=== PATIENT | female | born 1935 | race Caucasian/White ===

== ENCOUNTER → 2016-08-17 | Outpatient (CLI) | payer MEDICARE, MEDICAID ==
[~2016-08-17] MED LIST: /AUGM25TA PO; /PANT40TA PO; /RISE30TA OR; /RISE35TA OR; AMLO5TAB PO; ASPI81TA83 OR; BABY81CH OR; BACTROBAN TOP; CALC12502 PO; CALC600T10 OR; CALCCHW12 OR; CELE20TA OR; COLA100C2 PO; DIOV320T OR; DIOV320T PO; DIOV80TA OR; FERR325T PO; ILOTYCIN TOP; LEVA500T OR; LIDO5DIS TD; METF500T4 OR; METO25TA2 OR; MILKSUS OR; MILKSUS PO; NITR0.4S SL; NORV5TAB OR; OXYC10TA12 OR; PAIN325T PO; POTA20TA2 PO; SIMV20TA2 OR; TOPR25TA OR; TRAM50TA2 PO; ZOCOR PO; lumigan OP; mylanta PO
--- NOTE | 2016-08-17 09:35 | REP ---
Chest x-ray: Two views. History: History of kidney cancer. Comparison chest x-ray June 12, 2015. Findings: The lungs are slightly hyperinflated. There are linear fibrotic changes in the right middle lobe and left lower lobe unchanged. No new infiltrate is seen. Pleural angles are sharp. Cardiomediastinal silhouette is unremarkable and unchanged. There are mild degenerative changes in the thoracic spine. There are clips in the right upper abdomen. Impression: Bibasilar fibrosis. Otherwise no acute disease. Signed by Keny Parrish MD 08/17/2016 01:35 P
--- NOTE | 2016-08-17 11:42 | REP ---
CT ABDOMEN AND PELVIS IV OR ORAL CONTRAST: 08/17/2016 INDICATION: History of kidney cancer COMPARISON: CT of the abdomen and pelvis 04/03/2014 performed without contrast, following IV contrast in the nephrogram phase with 1 -minute delayed imaging. FINDINGS: Small amount of fibroatelectatic changes are seen in lung bases bilaterally and also in the lingula and right middle lobe. 3 mm calcified granuloma present within the left lower lobe. There are a few stable hepatic cysts. Spleen, pancreas gallbladder, adrenal glands are normal. There has been previous right nephrectomy. There is a small left extrarenal pelvis. There is no left hydronephrosis or obstructing ureteral calculi. There is a 3 cm hiatal hernia. The stomach and small bowel are without obstruction. Moderate atherosclerotic changes are noted in the abdominal aorta, without aneurysm. There are no pathologically enlarged retroperitoneal lymph nodes. Bladder is unremarkable. Uterus within normal limits. There are a few small left ovarian follicles. There is some nonspecific calcifications within the right lower quadrant. There moderate sigmoid diverticulosis. The appendix is not specifically seen yet there are no inflammatory changes in the right lower quadrant. There is no free air or ascites. A stable density lesion in the right side of T 11 is most compatible with benign hemangioma of bone. IMPRESSION: Prior right nephrectomy for history of kidney cancer. There are no pathologically enlarged retroperitoneal nodes or interval change. Few stable hepatic cysts with moderate sigmoid diverticulosis. Rare calcifications in the right lower pelvis which may be dystrophic or possibly vascular in etiology. Signed by Monserrat Tinoco MD 08/17/2016 08:59 P
== END | disposition home or self-care (01) ==
LOC: M RAD 08:20
PROVIDERS: ATTEND Urology
DX: Z85.528 Personal history of other malignant neoplasm of kidney (principal); Z90.5 Acquired absence of kidney; K76.89 Other specified diseases of liver; K57.30 Diverticulosis of large intestine without perforation or abscess without bleeding; J84.10 Pulmonary fibrosis, unspecified

== ENCOUNTER → 2016-12-18 | Outpatient (CLI) | payer MEDICAID, MEDICARE ==
[2016-12-18 10:21] LABS: ALBUMIN 3.7 GM/DL (3.2-5.2); ALBUMIN/GLOBULIN RATIO 1.12 (1.00-1.93); BILIRUBIN,TOTAL 0.3 MG/DL (0.2-1.0); CALCIUM LEVEL 8.9 MG/DL (8.8-10.2); CREATININE FOR GFR 1.7 MG/DL (0.55-1.02); GLOMERULAR FILTRATION RATE 30.8 (>32); POTASSIUM SERUM 4.7 MEQ/L (3.5-5.1)
== END ==
LOC: M LAB 09:16
PROVIDERS: ATTEND Nurse Practitioner Family
DX: I10 Essential (primary) hypertension (principal); E11.9 Type 2 diabetes mellitus without complications

== ENCOUNTER → 2017-04-16 | Outpatient (REF) | payer MEDICARE, MEDICAID ==
[2017-04-16 12:26] LABS: ALBUMIN 3.9 GM/DL (3.2-5.2); ALBUMIN/GLOBULIN RATIO 1.22 (1.00-1.93); BILIRUBIN,TOTAL 0.4 MG/DL (0.2-1.0); CREATININE FOR GFR 1.49 MG/DL (0.55-1.02); GLOMERULAR FILTRATION RATE 35.8 (>32); POTASSIUM SERUM 4.6 MEQ/L (3.5-5.1); TOTAL PROTEIN 7.1 GM/DL (6.4-8.2)
== END ==
LOC: M SFHCPLAZ 09:54
PROVIDERS: ATTEND Nurse Practitioner Family
DX: I12.9 Hypertensive chronic kidney disease with stage 1 through stage 4 chronic kidney disease, or unspecified chronic kidney disease (principal); N18.3 Chronic kidney disease, stage 3 (moderate); E11.9 Type 2 diabetes mellitus without complications; Z23 Encounter for immunization
CPT/HCPCS: 36415; 80053; 83036; 90662; G0008; G0463

== ENCOUNTER → 2017-07-30 | Outpatient (REF) | payer MEDICARE, MEDICAID ==
[2017-07-30 13:24] LABS: ESTIMATED AVERAGE GLUCOSE 160 MG/DL (60-110)
[2017-07-30 13:25] LABS: ALBUMIN 3.9 GM/DL (3.2-5.2); ALBUMIN/GLOBULIN RATIO 1.22 (1.00-1.93); ALKALINE PHOSPHATASE 45 U/L (45-117); ALT/SGPT 29 U/L (12-78); ANION GAP 8 MEQ/L (8-16); AST/SGOT 26 U/L (7-37); BILIRUBIN,TOTAL 0.4 MG/DL (0.2-1.0); BLOOD UREA NITROGEN 27 MG/DL (7-18); CALCIUM LEVEL 9.2 MG/DL (8.8-10.2); CARBON DIOXIDE LEVEL 28 MEQ/L (21-32); CHLORIDE LEVEL 103 MEQ/L (98-107); CREATININE FOR GFR 1.44 MG/DL (0.55-1.02); GLOMERULAR FILTRATION RATE 37.2 (>32); GLUCOSE, FASTING 108 MG/DL (83-110); POTASSIUM SERUM 4.6 MEQ/L (3.5-5.1); SODIUM LEVEL 139 MEQ/L (136-145); TOTAL PROTEIN 7.1 GM/DL (6.4-8.2)
== END ==
LOC: M SFHCPLAZ 11:00
DX: E11.9 Type 2 diabetes mellitus without complications (principal); E78.5 Hyperlipidemia, unspecified
CPT/HCPCS: 80053

== ENCOUNTER → 2017-10-15 | Outpatient (REF) | payer MEDICARE, MEDICAID ==
[2017-10-15 11:02] LABS: ALBUMIN/GLOBULIN RATIO 1.29 (1.00-1.93); ALKALINE PHOSPHATASE 55 U/L (45-117); ALT/SGPT 32 U/L (12-78); ANION GAP 8 MEQ/L (8-16); AST/SGOT 21 U/L (7-37); BILIRUBIN,TOTAL 0.4 MG/DL (0.2-1.0); BLOOD UREA NITROGEN 26 MG/DL (7-18); CALCIUM LEVEL 9.6 MG/DL (8.8-10.2); CARBON DIOXIDE LEVEL 28 MEQ/L (21-32); CHLORIDE LEVEL 104 MEQ/L (98-107); CHOLESTEROL LEVEL 160 MG/DL (<200); CHOLESTEROL RISK RATIO 2.666 (<5); CREATININE FOR GFR 1.58 MG/DL (0.55-1.30); ESTIMATED AVERAGE GLUCOSE 166 MG/DL (60-110); GLOMERULAR FILTRATION RATE 33.4 (>32); GLUCOSE, FASTING 160 MG/DL (70-100); HDL CHOLESTEROL 60 MG/DL (>40); HEMOGLOBIN A1c 7.4 %; LDL CHOLESTEROL 73.4 MG/DL (<100); NON-HDL-C 100 MG/DL; POTASSIUM SERUM 4.9 MEQ/L (3.5-5.1); SODIUM LEVEL 140 MEQ/L (136-145); TOTAL PROTEIN 7.1 GM/DL (6.4-8.2); TRIGLYCERIDES LEVEL 133 MG/DL (<150)
== END ==
LOC: M SFHCPLAZ 08:15
DX: E78.5 Hyperlipidemia, unspecified (principal); E11.9 Type 2 diabetes mellitus without complications
CPT/HCPCS: 80053

== ENCOUNTER → 2017-12-17 | Outpatient (CLI) | payer MEDICARE, MEDICAID | LOC: M WHC 10:08 | DX: Z12.31 Encounter for screening mammogram for malignant neoplasm of breast (principal) | CPT/HCPCS: 77067 ==

== ENCOUNTER → 2018-01-21 | Outpatient (REF) | payer MEDICARE, MEDICAID ==
[2018-01-21 12:56] LABS: CHOLESTEROL LEVEL 157 MG/DL (<200); CHOLESTEROL RISK RATIO 2.573 (<5); HDL CHOLESTEROL 61 MG/DL (>40); LDL CHOLESTEROL 71.8 MG/DL (<100); NON-HDL-C 96 MG/DL; TRIGLYCERIDES LEVEL 121 MG/DL (<150)
[2018-01-21 13:07] LABS: TOTAL 25(OH) VITAMIN D 52.3 NG/ML (30.0-100.0)
[2018-01-21 13:28] LABS: ESTIMATED AVERAGE GLUCOSE 160 MG/DL (60-110); HEMOGLOBIN A1c 7.2 %
== END ==
LOC: M SFHCPLAZ 09:17
DX: E11.9 Type 2 diabetes mellitus without complications (principal); E78.5 Hyperlipidemia, unspecified; E55.9 Vitamin D deficiency, unspecified; Z79.899 Other long term (current) drug therapy
CPT/HCPCS: 83036

== ENCOUNTER → 2018-06-10 | Outpatient (REF) | payer MEDICARE, MEDICAID ==
[2018-06-10 13:03] LABS: ALBUMIN 4.3 GM/DL (3.2-5.2); ALBUMIN/GLOBULIN RATIO 1.26 (1.00-1.93); ALKALINE PHOSPHATASE 59 U/L (45-117); ALT/SGPT 27 U/L (12-78); ANION GAP 6 MEQ/L (8-16); AST/SGOT 23 U/L (7-37); BILIRUBIN,TOTAL 0.4 MG/DL (0.2-1.0); BLOOD UREA NITROGEN 31 MG/DL (7-18); CARBON DIOXIDE LEVEL 31 MEQ/L (21-32); CHLORIDE LEVEL 99 MEQ/L (98-107); CREATININE FOR GFR 1.55 MG/DL (0.55-1.30); GLOMERULAR FILTRATION RATE 34.1 (>32); GLUCOSE, FASTING 150 MG/DL (70-100); POTASSIUM SERUM 4.7 MEQ/L (3.5-5.1); SODIUM LEVEL 136 MEQ/L (136-145); TOTAL PROTEIN 7.7 GM/DL (6.4-8.2)
[2018-06-10 14:16] LABS: TOTAL 25(OH) VITAMIN D 52.4 NG/ML (30.0-100.0)
[2018-06-10 14:26] LABS: ESTIMATED AVERAGE GLUCOSE 157 MG/DL (60-110); HEMOGLOBIN A1c 7.1 %
== END ==
LOC: M SFHCPLAZ 09:23
DX: E78.5 Hyperlipidemia, unspecified (principal); E11.9 Type 2 diabetes mellitus without complications; E55.9 Vitamin D deficiency, unspecified; Z79.899 Other long term (current) drug therapy
CPT/HCPCS: 80053

== ENCOUNTER → 2018-10-14 | Outpatient (REF) | payer MEDICARE, MEDICAID ==
[~2018-10-14] MED LIST changes: -/PANT40TA PO; +METO-1 OR; +PROT1TAB2 PO; -TOPR25TA OR
[2018-10-14 13:25] LABS: HEMOGLOBIN A1c 7.3 %
== END ==
LOC: M SFHCPLAZ 10:56
PROVIDERS: ATTEND Nurse Practitioner Family
DX: E11.9 Type 2 diabetes mellitus without complications (principal); E55.9 Vitamin D deficiency, unspecified
CPT/HCPCS: 36415; 82306; 83036; G0463

== ENCOUNTER 2018-12-14 21:16 | Emergency (ER) | payer MEDICARE, MEDICAID ==
[~2018-12-14] VITALS: Ht 154.9 cm; Wt 72.7 kg
[2018-12-14] MEDS ORDERED: NORV5TAB PO (21:38)
[2018-12-14] MEDS ORDERED: SIMB1SUS OP (21:38)
[2018-12-14] MEDS ORDERED: XALA0.007 OU (21:38)
[2018-12-14] MEDS ORDERED: FURO20TA2 PO (21:38)
[2018-12-14] MEDS ORDERED: SYST1SOL4 OU (21:38)
[2018-12-14] MEDS ORDERED: GLUC5TAB3 PO (21:38)
[2018-12-14] MEDS ORDERED: LOSA100T50 PO (21:38)
[2018-12-14] MEDS ORDERED: FAMO20TA PO (21:38)
[2018-12-14] MEDS ORDERED: CITA20TA6 PO (21:38)
[2018-12-14] MEDS ORDERED: D3 H10002 PO (21:38)
[2018-12-14] MEDS ORDERED: SIMV20TA2 PO (21:38)
[2018-12-14 22:03] LABS: BASO # 0.1 10^3/uL (0.0-0.2); BASO % 0.8 % (0.0-1.0); EOS # 0.1 10^3/uL (0.0-0.50); EOS % 1.7 % (0.0-3.0); HEMATOCRIT 38.2 % (36.0-47.0); HEMOGLOBIN 12.7 g/dl (12.0-15.5); LYMPH # 1.6 10^3/uL (1.5-4.5); MEAN CORPUSCULAR HGB CONC 33.2 g/dl (32.0-36.5); MEAN CORPUSCULAR VOLUME 90.1 fl (80.0-96.0); MONO # 0.9 10^3/uL (0.0-0.8); MONO % 11.5 % (0.0-5.0); NEUTROPHILS % 64.7 % (36.0-66.0); PLATELET COUNT, AUTOMATED 267 10^3/uL (150-450); RED BLOOD COUNT 4.24 10^6/uL (4.00-5.40); WHITE BLOOD COUNT 7.7 10^3/uL (4.0-10.0)
[2018-12-14 22:35] LABS: ALBUMIN 3.7 GM/DL (3.2-5.2); BILIRUBIN,DIRECT 0.1 MG/DL (0.0-0.2); BILIRUBIN,TOTAL 0.3 MG/DL (0.2-1.0); CALCIUM LEVEL 9.2 MG/DL (8.8-10.2); CREATININE FOR GFR 1.54 MG/DL (0.55-1.30); GLOMERULAR FILTRATION RATE 34.3 (>32); MB/CK RELATIVE INDEX 1.44 (< OR =4); POTASSIUM SERUM 3.9 MEQ/L (3.5-5.1); THYROID STIMULATING HORMONE 3.87 uIU/ML (0.358-3.740); TOTAL PROTEIN 6.7 GM/DL (6.4-8.2); TROPONIN I 0.02 NG/ML (< 0.10)
--- NOTE | 2018-12-14 22:37 | REPVR ---
EXAM: CT Head Without Contrast EXAM DATE/TIME: 12/14/2018 10:17 PM CLINICAL HISTORY: 83 years old, female; Signs and symptoms; Altered mental status/memory loss TECHNIQUE: Imaging protocol: Axial computed tomography images of the head without contrast. Radiation optimization: All CT scans at this facility use at least one of these dose optimization techniques: automated exposure control; mA and/or kV adjustment per patient size (includes targeted exams where dose is matched to clinical indication); or iterative reconstruction. COMPARISON: Thyroid, ST head+neck US 04/03/2014 10:36 AM FINDINGS: Brain: There is mild age-related parenchymal volume loss. White matter changes are demonstrated in the subcortical, centrum semiovale and periventricular white matter consistent with small vessel white matter angiopathic gliosis. Ventricles: The degree of ventricular dilatation is normal for age. No pathologic enlargement demonstrated. 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 Bones/joints: Unremarkable. No acute fracture. Sinuses: Visualized sinuses are unremarkable. No fluid levels. Mastoid air cells: Visualized mastoid air cells are well aerated. No mastoid effusion. Soft tissues: Unremarkable. IMPRESSION: There is mild age-related parenchymal volume loss. White matter changes are demonstrated in the subcortical, centrum semiovale and periventricular white matter consistent with small vessel white matter angiopathic gliosis. Electronically signed by: Rajiv Bradley On 12/14/2018 22:37:06 PM
[2018-12-14] MEDS ORDERED: NS 500 ML IV ONE (23:45)
[2018-12-15 00:30] VITALS: BP 134/60
--- NOTE | 2018-12-15 07:59 | REP ---
Chest x-ray: Two views. History: Altered mental status. Comparison chest x-ray: August 17, 2016. Findings: EKG monitoring electrodes overlie the chest. There is bibasilar plate-like atelectasis as a new finding. Today's view is exposed at a lesser level of inspiration. Heart is not felt to be enlarged. The aorta somewhat tortuous. Pulmonary vasculature is not increased. Pleural angles are sharp. No significant bony abnormality is seen. Impression: Lesser level of inspiration today. Moderate bibasilar plate-like atelectasis. Electronically Signed by Keny Parrish MD 12/15/2018 07:51 A
--- NOTE | 2018-12-15 08:09 | ECGEPIP ---
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
== END 2018-12-15 00:42 | disposition home or self-care (01) ==
LOC: M ED 21:16
DX: R41.0 Disorientation, unspecified (principal); T88.7XXA Unspecified adverse effect of drug or medicament, initial encounter; Y92.9 Unspecified place or not applicable; Y93.9 Activity, unspecified; G93.41 Metabolic encephalopathy; I45.10 Unspecified right bundle-branch block; I44.4 Left anterior fascicular block; I50.9 Heart failure, unspecified; E11.9 Type 2 diabetes mellitus without complications; I10 Essential (primary) hypertension; E78.5 Hyperlipidemia, unspecified; K21.9 Gastro-esophageal reflux disease without esophagitis; N18.3 Chronic kidney disease, stage 3 (moderate); Z85.528 Personal history of other malignant neoplasm of kidney; Z90.5 Acquired absence of kidney; Z79.82 Long term (current) use of aspirin; Z79.84 Long term (current) use of oral hypoglycemic drugs; Z79.899 Other long term (current) drug therapy; Z88.8 Allergy status to other drugs, medicaments and biological substances; Z88.2 Allergy status to sulfonamides; Z88.5 Allergy status to narcotic agent

== ENCOUNTER → 2018-12-29 | Outpatient (REF) | payer MEDICARE, MEDICAID ==
[~2018-12-29] MED LIST changes: +CITA20TA6 PO; +D3 H10002 PO; +FAMO20TA PO; +FURO20TA2 PO; +GLUC5TAB3 PO; +LOSA100T50 PO; +NORV5TAB PO; +SIMB1SUS OP; +SIMV20TA2 PO; +SYST1SOL4 OU; +XALA0.007 OU
[2018-12-29 16:14] LABS: FREE T4 1.13 NG/DL (0.76-1.46); THYROID STIMULATING HORMONE 1.54 uIU/ML (0.358-3.740)
== END ==
LOC: M SFHCPLAZ 12:28
PROVIDERS: ATTEND Nurse Practitioner Family
DX: R41.3 Other amnesia (principal)
CPT/HCPCS: 36415; 82306; 82607; 84439; 84443; G0463

== ENCOUNTER → 2019-01-19 | Outpatient (REF) | payer MEDICARE, MEDICAID | LOC: M SFHCPLAZ 07:31 | PROVIDERS: ATTEND Nurse Practitioner Family | DX: E11.9 Type 2 diabetes mellitus without complications (principal); N18.3 Chronic kidney disease, stage 3 (moderate); E78.5 Hyperlipidemia, unspecified; Z53.8 Procedure and treatment not carried out for other reasons ==

== ENCOUNTER → 2019-06-23 | Outpatient (REF) | payer MEDICARE, MEDICAID ==
[~2019-06-23] MED LIST changes: -SIMV20TA2 PO; +SIMV20TA22 PO
[2019-06-23 15:46] LABS: HEMOGLOBIN A1c 7.3 %
[2019-06-23 15:50] LABS: ALBUMIN 4.1 GM/DL (3.2-5.2); BILIRUBIN,TOTAL 0.4 MG/DL (0.2-1.0); CALCIUM LEVEL 9.3 MG/DL (8.8-10.2); CREATININE FOR GFR 1.41 MG/DL (0.55-1.30); GLOMERULAR FILTRATION RATE 37.9 (>32); POTASSIUM SERUM 4.5 MEQ/L (3.5-5.1); TOTAL PROTEIN 7.4 GM/DL (6.4-8.2)
== END ==
LOC: M SFHCPLAZ 14:21
PROVIDERS: ATTEND Nurse Practitioner Family
DX: I12.9 Hypertensive chronic kidney disease with stage 1 through stage 4 chronic kidney disease, or unspecified chronic kidney disease (principal); N18.3 Chronic kidney disease, stage 3 (moderate); E78.5 Hyperlipidemia, unspecified; E11.9 Type 2 diabetes mellitus without complications; Z23 Encounter for immunization
CPT/HCPCS: 36415; 80053; 83036; 90682; G0008; G0463

== ENCOUNTER → 2019-07-11 | Outpatient (CLI) | payer MEDICARE, MEDICAID ==
[2019-07-11 13:46] LABS: ALBUMIN 4.1 GM/DL (3.2-5.2); BILIRUBIN,TOTAL 0.5 MG/DL (0.2-1.0); CALCIUM LEVEL 9.4 MG/DL (8.8-10.2); CREATININE FOR GFR 1.42 MG/DL (0.55-1.30); GLOMERULAR FILTRATION RATE 37.6 (>32); POTASSIUM SERUM 4.4 MEQ/L (3.5-5.1); TOTAL PROTEIN 7.5 GM/DL (6.4-8.2)
[2019-07-11 14:00] LABS: HEMOGLOBIN A1c 7.2 %
== END ==
LOC: M PLALAB 11:30
PROVIDERS: ATTEND Nurse Practitioner Family
DX: E11.9 Type 2 diabetes mellitus without complications (principal); I12.9 Hypertensive chronic kidney disease with stage 1 through stage 4 chronic kidney disease, or unspecified chronic kidney disease; N18.3 Chronic kidney disease, stage 3 (moderate); E78.5 Hyperlipidemia, unspecified

== ENCOUNTER → 2019-08-09 | Outpatient (REF) | payer MEDICARE, MEDICAID ==
[2019-08-09 13:52] LABS: ALBUMIN 4.1 GM/DL (3.2-5.2); CALCIUM LEVEL 9.4 MG/DL (8.8-10.2); CREATININE FOR GFR 1.42 MG/DL (0.55-1.30); GLOMERULAR FILTRATION RATE 37.6 (>32); MAGNESIUM LEVEL 2.1 MG/DL (1.8-2.4); POTASSIUM SERUM 4.2 MEQ/L (3.5-5.1)
== END ==
LOC: M LAB REF 13:09
PROVIDERS: ATTEND Nurse Practitioner Family
DX: N18.3 Chronic kidney disease, stage 3 (moderate) (principal); E83.42 Hypomagnesemia

== ENCOUNTER → 2019-12-12 | Outpatient (CLI) | payer MEDICARE, MEDICAID ==
[2019-12-12 09:56] LABS: HEMOGLOBIN A1c 7.4 %
== END ==
LOC: M LAB 08:34
PROVIDERS: ATTEND Family Medicine
DX: E11.9 Type 2 diabetes mellitus without complications (principal)

== ENCOUNTER 2020-06-04 10:58 | Inpatient (IN) | payer MEDICARE, MEDICAID ==
[~2020-06-04] VITALS: Ht 157.5 cm; Wt 64.7 kg
[~2020-06-04 10:58] MED LIST changes: -SIMB1SUS OP; +SIMB1SUS OU
[2020-06-04] MEDS ORDERED: LIDOCAINE 2% 5ML JELLY UROJET TOP ONE ×3 (11:30→12:30)
[2020-06-04 11:37] LABS: BASO % 0.4 % (0.0-1.0); HEMATOCRIT 41.9 % (36.0-47.0); HEMOGLOBIN 13.7 g/dl (12.0-15.5); LYMPH # 0.7 10^3/uL (1.5-5.0); LYMPH % 9.7 % (24.0-44.0); MEAN CORPUSCULAR HEMOGLOBIN 29.9 pg (27.0-33.0); MEAN CORPUSCULAR HGB CONC 32.7 g/dl (32.0-36.5); MEAN CORPUSCULAR VOLUME 91.5 fl (80.0-96.0); MONO # 0.4 10^3/uL (0.0-0.8); NEUTROPHILS # 6.5 10^3/uL (1.5-8.5); NEUTROPHILS % 84.6 % (36.0-66.0); PLATELET COUNT, AUTOMATED 304 10^3/uL (150-450); RED BLOOD COUNT 4.58 10^6/uL (4.00-5.40); WHITE BLOOD COUNT 7.6 10^3/uL (4.0-10.0)
--- NOTE | 2020-06-04 11:47 | REP ---
INDICATION: Altered Mental Status. COMPARISON: Comparison head CT study December 14, 2018.. TECHNIQUE: Helical scanning is acquired. 5 mm axial images were reformatted. Coronal MPR images were generated. FINDINGS: Bone window settings demonstrate an intact bony calvarium. There is no evidence of skull fracture or incidental bony calvarial lesion. The visualized paranasal sinuses appear clear. No intraorbital abnormality is seen. On soft tissue window setting images; the lateral, third, and fourth ventricles are normal in size and position. Justice-white differentiation pattern is normal above and below the tentorium. There are is no evidence of intracranial hemorrhage. No mass, edema, infarction, or midline shift is seen. No extra-axial fluid collection is appreciated. There is generalized volume loss. This is unchanged. Minimal vascular calcification is seen. IMPRESSION: Generalized volume loss as previously noted. Otherwise negative CT study of the brain. No acute intracranial abnormality.. <Electronically signed by Dwayne Parrish > 06/04/20 [id number]
--- NOTE | 2020-06-04 11:57 | REP ---
INDICATION: Altered Mental Status. COMPARISON: 12/14/2018, 08/17/2016 TECHNIQUE: AP seated chest FINDINGS: The lungs are well inflated. There is linear fibrotic change peripherally in the right mid lower lung zone and some posterior basilar fibrotic changes on the left. There is also linear the scarring in the right medial base. There is no dense consolidation or gross effusion visible. Heart is not enlarged. The aorta is calcified and tortuous but unchanged. Airway intact. Degenerative changes throughout the thoracic spine and both shoulders. No free air under the diaphragm. IMPRESSION: 1. Some basilar fibrosis bilaterally without definite superimposed infiltrate, effusion, cardiomegaly or edema 2. Tortuous ectatic calcified aorta, stable. 3. Degenerative changes in the spine and shoulders. Bones demineralized. No acute bony findings. <Electronically signed by Jose Ryder > 06/04/20 [id number]
[2020-06-04] MEDS ORDERED: NS 1,000 ML IV ONE (12:00)
[2020-06-04 12:14] LABS: ACETAMINOPHEN LEVEL < 2.0 UG/ML (10.0-30.0); ALBUMIN 4.3 GM/DL (3.2-5.2); ALT/SGPT 27 U/L (12-78); BEDSIDE GLUCOSE CONFIRMATION 731 MG/DL (LESS THAN 200); BILIRUBIN,DIRECT 0.3 MG/DL (0.0-0.2); BILIRUBIN,TOTAL 0.6 MG/DL (0.2-1.0); BLOOD UREA NITROGEN 28 MG/DL (7-18); CALCIUM LEVEL 10.2 MG/DL (8.8-10.2); CARBON DIOXIDE LEVEL 23 MEQ/L (21-32); CHLORIDE LEVEL 98 MEQ/L (98-107); CK-MB VALUE MASS 4.8 NG/ML (<3.6); CPK CREATINE PHOSPHOKINASE 447 U/L (26-192); CREATININE FOR GFR 1.61 MG/DL (0.55-1.30); ETHYL ALCOHOL (ETHANOL) < 0.003 % (0.000-0.010); GLOMERULAR FILTRATION RATE 32.5 (>32); GLUCOSE, FASTING 731 MG/DL (70-100); MB/CK RELATIVE INDEX 1.07 (< OR =4); POTASSIUM SERUM 4.6 MEQ/L (3.5-5.1); SALICYLATE LEVEL < 1.7 MG/DL (5.0-30.0); SODIUM LEVEL 132 MEQ/L (136-145); TOTAL PROTEIN 7.7 GM/DL (6.4-8.2); TROPONIN I 0.04 NG/ML (< 0.10)
[2020-06-04] MEDS ORDERED: HumuLIN R (REGULAR) INSULIN (NovoLIN R) **100U/ML** PER UNIT IV ONE (12:30)
[2020-06-04] MEDS ORDERED: ASPI81TA26 PO (12:44)
[2020-06-04] MEDS ORDERED: D31000TA2 PO (12:44)
[2020-06-04] MEDS ORDERED: MELA3TAB30 PO (12:45)
[2020-06-04 12:53] LABS: AMPHETAMINES LEVEL URINE NEGATIVE (NEGATIVE); BARBITURATES URINE NEGATIVE (NEGATIVE); BENZODIAZEPINES URINE NEGATIVE (NEGATIVE); CANNABINOIDS URINE NEGATIVE (NEGATIVE); COCAINE METABOLITE URINE NEGATIVE (NEGATIVE); METHADONE URINE NEGATIVE (NEGATIVE); OPIATES URINE NEGATIVE (NEGATIVE); PHENCYCLIDINE URINE NEGATIVE (NEGATIVE)
[2020-06-04] MEDS ORDERED: INSULIN REGULAR IN 0.9 % NACL 100 UNIT in IV 1 EA IV SCH ×2 (13:00)
[2020-06-04] MEDS ORDERED: ACETAMINOPHEN TAB 650MG DOSE (2X325MG) PO PRN (13:00)
[2020-06-04] MEDS ORDERED: INSULIN IV RATE CHANGE DOCUMENTATION ML/HR XX SCH (13:00)
--- NOTE | 2020-06-04 13:14 | HPEPDOC ---
General Date of Admission 06/04/20 Date of Service: Jun 04, 2020 Chief Complaint The patient is a 85-year-old female admitted with a reason for visit of Alt. Mental Status. Source: Family, Caregiver Exam Limitations: Dementia Timing/Duration: 24 hours, Day(s) Severity: Moderate History of Present Illness Patient is 85 years old female with past medical history of right nephrectomy due to cancer, dementia, type 2 diabetes presented to the hospital with altered mental status. According to her daughter in low for past 1-2 days patient has been having increased confusion, was disoriented in time and place. Patient did not have any fever or chills, diarrhea. In ER patient was found to have glucose level of 731, anion gap with in normal limit, creatinine 1.6. High blood pressure of 170/84. Home Medications Scheduled Amlodipine Besylate (Norvasc) 5 Mg Tablet, 5 MG PO DAILY, (Reported) Aspirin (Aspirin EC) 81 Mg Tablet.dr, 81 MG PO QHS, (Reported) Brinzolamide/Brimonidine Tart (Simbrinza 1%-0.2% Eye Drops) 8 Ml Drops.susp, 1 DROP OU QHS, (Reported) Cholecalciferol (Vitamin D3) (Vitamin D3) 1,000 Unit Tablet, 1,000 UNITS PO DAILY, (Reported) Citalopram Hydrobromide (Citalopram HBr) 20 Mg Tablet, 30 MG PO DAILY, (Repor my) Famotidine (Famotidine) 20 Mg Tablet, 20 MG PO DAILY, (Reported) Furosemide (Furosemide) 20 Mg Tablet, 20 MG PO DAILY, (Reported) Glipizide (Glucotrol) 5 Mg Tablet, 2.5 MG PO DAILY, (Reported) Latanoprost (Xalatan) 0.005% 2.5ML Drops, 1 DROP OU QHS, (Reported) Losartan Potassium (Losartan Potassium) 100 Mg Tablet, 100 MG PO QHS, (Reported) Simvastatin (Simvastatin) 20 Mg Tablet, 20 MG PO QHS, (Reported) Scheduled PRN Melatonin (Melatonin) 3 Mg Tablet, 3 MG PO QHS PRN for SLEEP, (Reported) Propylene Glycol/Peg 400/Pf (Systane 0.3-0.4% Eye Drop) 1 Each Droperette, 1 DROP OU QID PRN for DRY EYES, (Reported) Allergies Coded Allergies: Sulfa (Sulfonamide Antibiotics) (Verified Allergy, Intermediate, hives, 12/14/18) Quinolones (Verified Adverse Reaction, Intermediate, psychosis, 12/14/18) hydromorphone (Verified Adverse Reaction, Intermediate, psychosis, 12/14/18) Past Medical History Medical History Hyperlipidemia, hypertension, right kidney cancer, type 2 diabetes, dementia Surgical History Tubal ligation, right nephrectomy due to kidney cancer Family History I personally reviewed family history and found not pertinent Social History * Smoker: Denies Alcohol: Denies Drugs: denies A-FIB/CHADSVASC A-FIB History Current/History of A-Fib/PAF?: No Current PO Anticoag Therapy: No Review of Systems Constitutional: Denies: Chills, Fever Eyes: Denies: Pain ENT: Denies: Head Aches Skin: Denies: Rash, Lesions Pulmonary: Denies: Dyspnea Cardiovascular: Denies: Chest Pain Gastrointestinal: Denies: Nausea, Vomiting Genitourinary: Reports: Dysuria Hematologic: Denies: Bruising Endocrine: Reports: Polydipsia Musculoskeletal: Denies: Neck Pain, Back Pain Neurological: Denies: Weakness Psych: Reports: Mood Normal Physical Examination General Exam: Positive: Alert, Cooperative Eye Exam: Positive: PERRLA ENT Exam: Positive: Atraumatic Neck Exam: Positive: Supple; Negative: JVD Chest Exam: Positive: Clear to auscultation Heart Exam: Positive: Rate Normal Telemetry: Positive: No significant arrhythmia Abdomen Exam: Positive: Normal bowel sounds Extremity Exam: Negative: Clubbing Skin Exam: Negative: Lesion Neuro Exam: Positive: Cranial Nerves 3-12 NL, Reflexes 2+ Psych Exam: Positive: Other (patient demented not oriented in place and time) Vital Signs Vital Signs Date Time Temp Pulse Resp B/P (MAP) Pulse Ox O2 Delivery O2 Flow Rate FiO2 06/04/20 11:24 96.7 06/04/20 11:00 97 16 170/84 (112) 94 Room Air Laboratory Data Labs 24H Laboratory Tests 2 06/04/20 11:17: Urine Opiates Screen NEGATIVE, Urine Methadone Screen NEGATIVE, Urine Barbit urates Screen NEGATIVE, Urine Phencyclidine Screen NEGATIVE, Urine Amphetamines Screen NEGATIVE, Urine Benzodiazepines Screen NEGATIVE, Urine Cocaine Metabolite Screen NEGATIVE, Urine Cannabinoids Screen NEGATIVE 06/04/20 11:24: Immature Granulocyte % (Auto) 0.3, Neutrophils (%) (Auto) 84.6H, Lymphocytes (%) (Auto) 9.7L, Monocytes (%) (Auto) 5.0, Eosinophils (%) (Auto) 0.0, Basophils (%) (Auto) 0.4, Neutrophils # (Auto) 6.5, Lymphocytes # (Auto) 0.7L, Monocytes # (Auto) 0.4, Eosinophils # (Auto) 0.0, Basophils # (Auto) 0.0, Nucleated Red Blood Cells % (auto) 0.0, POC Glucose (Misc Panel) > 700*H, Bedside Glucose Confirm (Misc) 731*H, POC Sodium (Misc Panel) 133L, POC Potassium (Misc Panel) 4.6, POC Chloride (Misc Panel) 100, POC Total CO2 (Misc Panel) 24.0, POC Blood U selina Nitrogen (Misc Panel 27H, POC Ionized Calcium (Misc Panel) 5.0, POC Creatinine (Misc Panel) 1.2, POC Hematocrit (Misc Panel) 44.0, Anion Gap 11, Glomerular Filtration Rate 32.5, Estimated Mean Plasma Glucose 240H, Hemoglobin A1c 10.0, Lactic Acid Level 3.3*H, Calcium Level 10.2, Total Bilirubin 0.6, Direct Bilirubin 0.3H, Aspartate Amino Transf (AST/SGOT) 22, Alanine Aminotransferase (ALT/SGPT) 27, Alkaline Phosphatase 88, Ammonia 13, Total Creatine Kinase 447H, Creatine Kinase MB 4.8H, Creatine Kinase MB Relative Index 1.07, Troponin I 0.04, Total Protein 7.7, Albumin 4.3, Albumin/Globulin Ratio 1.3, Thyroid Stimulating Hormone (TSH) 1.100, Salicylates Level < 1.7L, Acetaminophen Level < 2.0L, Ethyl Alcohol Level < 0.003 06/04/20 12:22: Urine Color YELLOW, Urine Appearance HAZY, Urine pH 6.0, Urine Specific [place] 1.026, Urine Protein NEGATIVE, Urine Glucose (UA) 3+H, Urine Ketones TRACEH, Urine Blood 1+H, Urine Nitrite NEGATIVE, Urine Bilirubin NEGATIVE, Urine Urobilinogen 0.2, Urine Leukocyte Esterase NEGATIVE, Urine WBC (Auto) 2, Urine RBC (Auto) 3, Urine Hyaline Casts (Auto) 0, Urine Bacteria (Auto) 2+H, Urine Squamous Epithelial Cells 0, Urine Mucus (Auto) SMALL, Urine Sperm (Auto) CBC/BMP Laboratory Tests 06/04/20 11:24 Microbiology Microbiology 06/04/20 Blood Culture, Received Pending Assessment/Plan Patient is 85 years old female with past medical history of right nephrectomy due to cancer, dementia, type 2 diabetes presented to the hospital with altered mental status. According to her daughter in low for past 1-2 days patient has been having increased confusion, was disoriented in time and place. Patient did not have any fever or chills, diarrhea. In ER patient was found to have glucose level of 731, anion gap with in normal limit, creatinine 1.6. High blood pressure of 170/84. Problems (1) Hyperglycemic hyperosmolar nonketotic coma Status: Acute Problem Text: Patient has type 2 diabetes, she takes glipizide Insulin drip IV fluid BMP every 4 hours Glucose level every 1 hour We'll check HbA1c (2) Confusion Status: Acute Problem Text: Secondary to HHC superimposed with dementia (3) Hypertension Status: Chronic Problem Text: Continue home meds (4) CKD (chronic kidney disease) Status: Acute Problem Text: Acute on chronic Due to dehydration secondary to HHC IV fluid, continue to monitor (5) Dementia Status: Chronic Problem Text: Continue home meds Plan / VTE VTE Prophylaxis Ordered?: Yes KELVIN LAGOS DO Jun 04, 2020 13:14
[2020-06-04 13:35] LABS: ABG BASE EXCESS -2.5 (-2.0-2.0); ABG HCO3 21.9 MEQ/L (22.0-26.0); ABG O2 SATURATION 95.2 % (95.0-99.0); ABG PARTIAL PRESSURE CO2 36.7 mmHg (35.0-45.0); ABG PARTIAL PRESSURE O2 75.8 mmHg (75.0-100.0); ABG STANDARD HCO3 22.4 MEQ/L (22.0-26.0); ABG pH (ARTERIAL) 7.394 UNITS (7.350-7.450)
[2020-06-04] MEDS: KCL 20MEQ in NS 1000ML 1,000 ML IV SCH ×2 (14:02→21:04)
[2020-06-04 14:07] LABS: HEMOGLOBIN A1c 10.3 %
[2020-06-04] MEDS ORDERED: DEXTROSE 50% 50 ML SYRINGE IV PRN (14:45)
[2020-06-04] MEDS ORDERED: GLUCOSE 4GM CHEW TABLET PO PRN (14:45)
[2020-06-04] MEDS ORDERED: GLUCAGON INJ 1MG VIAL SC PRN (14:45)
[2020-06-04] MEDS: LEVEMIR (INSULIN DETEMIR) 1 UNITS/0.01ML SC SCH (15:46)
[2020-06-04 16:00] VITALS: BP 144/67
[2020-06-04] MEDS: HumaLOG INSULIN (NovoLOG) PER UNIT SC SCH (17:56)
[2020-06-04] MEDS: LOSARTAN 50MG TABLET PO SCH (17:57)
[2020-06-04 20:00] VITALS: BP 137/60
[2020-06-04] MEDS ORDERED: SIMVASTATIN 20 MG TAB PO SCH (21:00)
[2020-06-04] MEDS ORDERED: ASPIRIN 81 MG ENTERIC TAB PO SCH (21:00)
[2020-06-04] MEDS ORDERED: LOSARTAN 50MG TABLET PO SCH (21:00)
[2020-06-04] MEDS ORDERED: LATANOPROST 0.005% OPHTH SOLN 2.5 ML OU SCH (21:00)
[2020-06-04] MEDS ORDERED: HumaLOG INSULIN (NovoLOG) PER UNIT SC SCH (21:00)
[2020-06-04 21:38] LABS: CREATININE FOR GFR 1.27 MG/DL (0.55-1.30); GLOMERULAR FILTRATION RATE 42.7 (>32); POTASSIUM SERUM 3.9 MEQ/L (3.5-5.1)
[2020-06-05] VITALS: BP 138/76
[2020-06-05 01:25] LABS: CALCIUM LEVEL 9.1 MG/DL (8.8-10.2); CREATININE FOR GFR 1.16 MG/DL (0.55-1.30); GLOMERULAR FILTRATION RATE 47.4 (>32); POTASSIUM SERUM 3.3 MEQ/L (3.5-5.1)
[2020-06-05] MEDS: POTASSIUM CHLORIDE 10 MEQ SR TABLET PO SCH ×2 (03:20→05:24)
[2020-06-05] MEDS: KCL 20MEQ in NS 1000ML 1,000 ML IV SCH (03:20)
[2020-06-05 04:00] VITALS: BP 149/70
[2020-06-05 05:58] LABS: BILIRUBIN,TOTAL 0.5 MG/DL (0.2-1.0); CALCIUM LEVEL 8.6 MG/DL (8.8-10.2); CREATININE FOR GFR 1.13 MG/DL (0.55-1.30); GLOMERULAR FILTRATION RATE 48.8 (>32); PHOSPHORUS LEVEL 3.3 MG/DL (2.5-4.9); POTASSIUM SERUM 4.4 MEQ/L (3.5-5.1); TOTAL PROTEIN 5.9 GM/DL (6.4-8.2)
[2020-06-05 08:00] VITALS: BP 181/81
[2020-06-05] MEDS: HumaLOG INSULIN (NovoLOG) PER UNIT SC SCH ×2 (08:37→12:00)
[2020-06-05] MEDS: LEVEMIR (INSULIN DETEMIR) 1 UNITS/0.01ML SC SCH (08:38)
[2020-06-05] MEDS: LOSARTAN 50MG TABLET PO SCH (08:38)
[2020-06-05 08:39] VITALS: BP 181/81
[2020-06-05] MEDS ORDERED: CitaloPRAM (CeleXA) 20 MG TAB PO SCH (09:00)
[2020-06-05] MEDS ORDERED: ENOXAPARIN 30MG/0.3ML SYRINGE (J1650 PER 10MG) SC SCH (09:00)
[2020-06-05] MEDS ORDERED: FAMOTIDINE 20 MG TAB PO SCH (09:00)
[2020-06-05] MEDS ORDERED: VITAMIN D 1,000 INTERNATIONAL UNITS TABLET PO SCH (09:00)
[2020-06-05] MEDS ORDERED: amLODIPine 5 MG TAB PO SCH (09:00)
[2020-06-05] MEDS ORDERED: BLOOKIT21 XX (10:34)
[2020-06-05] MEDS ORDERED: LANC30MI XX (10:34)
[2020-06-05] MEDS ORDERED: GLUC1TES2 XX (10:34)
[2020-06-05] MEDS ORDERED: ALCOPAD25 TOP (10:34)
[2020-06-05] MEDS ORDERED: LANTINJ4 SC (10:34)
[2020-06-05] MEDS ORDERED: METF-839 PO (10:34)
[2020-06-05] MEDS ORDERED: PEN1MIS22 SC (10:34)
--- NOTE | 2020-06-05 11:34 | ECGEPIP ---
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
--- NOTE | 2020-06-05 12:33 | DS.PDOC ---
Discharge Summary General Date of Admission Jun 04, 2020 at 12:52 Date of Discharge 06/05/20 Discharge Summary PROCEDURES PERFORMED DURING STAY: [None]. ADMITTING DIAGNOSES: Hyperglycemic hyperosmolar nonketotic coma Confusion Hypertension CKD (chronic kidney disease) Dementia DISCHARGE DIAGNOSES: Hyperglycemic hyperosmolar nonketotic coma Confusion Hypertension CKD (chronic kidney disease) Dementia COMPLICATIONS/CHIEF COMPLAINT: Confusion. HISTORY OF PRESENT ILLNESS:Patient is 85 years old female with past medical history of right nephrectomy due to cancer, dementia, type 2 diabetes presented to the hospital with altered mental status. According to her daughter in low for past 1-2 days patient has been having increased confusion, was disoriented in time and place. Patient did not have any fever or chills, diarrhea. In ER patient was found to have glucose level of 731, anion gap with in normal limit, creatinine 1.6. High blood pressure of 170/84. HOSPITAL COURSE: During hospital stay following issue addressed (1) Hyperglycemic hyperosmolar nonketotic coma Patient received treatment with Insulin drip Glucose level was stabilized Patient has poorly controlled diabetes with around HbA1c 10 (2) Confusion Secondary to HHC superimposed with dementia (3) Hypertension Continue home meds (4) CKD (chronic kidney disease) Acute on chronic Due to dehydration secondary to HHC IV fluid, continue to monitor (5) Dementia Continue home meds DISCHARGE MEDICATIONS: Please see below. ALLERGIES: Please see below. PHYSICAL EXAMINATION ON DISCHARGE: VITAL SIGNS: Please see below. Physical Examination General Exam: Positive: Alert, Cooperative Eye Exam: Positive: PERRLA ENT Exam: Positive: Atraumatic Neck Exam: Positive: Supple; Negative: JVD Chest Exam: Positive: Clear to auscultation Heart Exam: Positive: Rate Normal Telemetry: Positive: No significant arrhythmia Abdomen Exam: Positive: Normal bowel sounds Extremity Exam: Negative: Clubbing Skin Exam: Negative: Lesion Neuro Exam: Positive: Cranial Nerves 3-12 NL, Reflexes 2+ Psych Exam: Positive: Other (patient demented not oriented in place and time) LABORATORY DATA: Please see below. PROGNOSIS: Fair ACTIVITY: [As tolerated]. DIET: Diabetes DISPOSITION: Home DISCHARGE INSTRUCTIONS: Check glucose level before each meal ITEMS TO FOLLOWUP ON ON OUTPATIENT: Follow-up with PCP in 2-3 days DISCHARGE CONDITION: [Stable]. TIME SPENT ON DISCHARGE: Greater than 20 minutes. Vital Signs/I&Os Vital Signs Date Time Temp Pulse Resp B/P (MAP) Pulse Ox O2 Delivery O2 Flow Rate FiO2 06/05/20 08:39 75 181/81 06/05/20 08:00 97.3 20 98 Room Air I&O- Last 24 Hours up to 6 AM 06/05/20 06:00 Intake Total 1309 ml Output Total 1150 ml Balance 159 ml Laboratory Data Labs 24H Laboratory Tests 2 06/04/20 13:24: Blood Gas Bicarbonate Standard 22.4, Arterial Blood pH 7.394, Arterial Blood Partial Pressure CO2 36.7, Arterial Blood Partial Pressure O2 75.8, Arterial Blood Total CO2 23.0, Arterial Blood HCO3 21.9L, Arterial Blood Base Excess - 2.5L, Arterial Blood Oxygen Saturation 95.2 06/04/20 13:32: Estimated Mean Plasma Glucose 249H, Hemoglobin A1c 10.3 06/04/20 13:47: Bedside Glucose (Misc Panel) 362H 06/04/20 15:11: Bedside Glucose (Misc Panel) 188H 06/04/20 15:38: Lactic Acid Followup at 4 Hours 2.9*H 06/04/20 17:19: Bedside Glucose (Misc Panel) 121H 06/04/20 20:59: Anion Gap 5L, Glomerular Filtration Rate 42.7, Calcium Level 9.0 06/04/20 21:06: Bedside Glucose (Misc Panel) 140H 06/05/20 00:46: Anion Gap 6L, Glomerular Filtration Rate 47.4, Calcium Level 9.1 06/05/20 02:28: Bedside Glucose (Misc Panel) 67L 06/05/20 03:12: Bedside Glucose (Misc Panel) 154H 06/05/20 04:12: Bedside Glucose (Misc Panel) 217H 06/05/20 05:04: Anion Gap 1L, Glomerular Filtration Rate 48.8, Calcium Level 8.6L, Phosphorus Level 3.3, Magnesium Level 2.0, Total Bilirubin 0.5, Aspartate Amino Transf (AST/SGOT) 26, Alanine Aminotransferase (ALT/SGPT) 25, Alkaline Phosphatase 60, Total Protein 5.9#L, Albumin 3.0#L, Albumin/Globulin Ratio 1.0L CBC/BMP Laboratory Tests 06/04/20 20:59 06/05/20 00:46 06/05/20 05:04 FSBS Laboratory Tests Test 06/04/20 13:47 06/04/20 15:11 06/04/20 17:19 06/04/20 21:06 Range/Units Bedside Glucose (Misc Panel) 362 188 121 140 83-110 MG/DL Test 06/05/20 02:28 06/05/20 03:12 06/05/20 04:12 Range/Units Bedside Glucose (Misc Panel) 67 154 217 83-110 MG/DL Microbiology Microbiology 06/04/20 Blood Culture, Received Pending 06/04/20 Blood Culture - Preliminary, Resulted No growth after 24 hours . All specim... Discharge Medications Scheduled Amlodipine Besylate (Norvasc) 5 Mg Tablet, 5 MG PO DAILY, (Reported) Aspirin (Aspirin EC) 81 Mg Tablet.dr, 81 MG PO QHS, (Reported) Blood Sugar Diagnostic (Advanced Glucose Test Strips) 1 Each Strip, 1 STRIP XX ACHS Brinzolamide/Brimonidine Tart (Simbrinza 1%-0.2% Eye Drops) 8 Ml Drops.susp, 1 DROP OU QHS, (Reported) Cholecalciferol (Vitamin D3) (Vitamin D3) 1,000 Unit Tablet, 1,000 UNITS PO DAILY, (Reported) Citalopram Hydrobromide (Citalopram HBr) 20 Mg Tablet, 30 MG PO DAILY, (Reported) Famotidine (Famotidine) 20 Mg Tablet, 20 MG PO DAILY, (Reported) Furosemide (Furosemide) 20 Mg Tablet, 20 MG PO DAILY, (Reported) Insulin Glargine,Hum.rec.anlog (Lantus Solostar) 100 Unit/1 Ml Insuln.pen, 15 UNIT SC QPM Latanoprost (Xalatan) 0.005% 2.5ML Drops, 1 DROP OU QHS, (Reported) Losartan Potassium (Losartan Potassium) 100 Mg Tablet, 100 MG PO QHS, (Reported) Metformin HCl (Metformin HCl) 500 Mg Tablet, 500 MG PO BID Simvastatin (Simvastatin) 20 Mg Tablet, 20 MG PO QHS, (Reported) Scheduled PRN Melatonin (Melatonin) 3 Mg Tablet, 3 MG PO QHS PRN for SLEEP, (Reported) Propylene Glycol/Peg 400/Pf (Systane 0.3-0.4% Eye Drop) 1 Each Droperette, 1 DROP OU QID PRN for DRY EYES, (Reported) Allergies Coded Allergies: Sulfa (Sulfonamide Antibiotics) (Verified Allergy, Intermediate, hives, 12/14/18) Quinolones (Verified Adverse Reaction, Intermediate, psychosis, 12/14/18) hydromorphone (Verified Adverse Reaction, Intermediate, psychosis, 12/14/18) KELVIN LAGOS DO Jun 05, 2020 12:33
== END 2020-06-05 14:58 | disposition home health service (06) | DRG 639 ==
LOC: M ED 10:58 → M ED INP 12:52 → ENRESERV 13:44 → M PCU 16:25
PROVIDERS: ADMIT Internal Medicine; ATTEND Internal Medicine
DX: E11.01 Type 2 diabetes mellitus with hyperosmolarity with coma (principal); R41.82 Altered mental status, unspecified; F03.90 Unspecified dementia, unspecified severity, without behavioral disturbance, psychotic disturbance, mood disturbance, and anxiety; I10 Essential (primary) hypertension; E11.65 Type 2 diabetes mellitus with hyperglycemia; E86.0 Dehydration; E11.22 Type 2 diabetes mellitus with diabetic chronic kidney disease; E78.5 Hyperlipidemia, unspecified; N18.9 Chronic kidney disease, unspecified; Z85.528 Personal history of other malignant neoplasm of kidney; Z90.5 Acquired absence of kidney; Z79.82 Long term (current) use of aspirin; Z79.84 Long term (current) use of oral hypoglycemic drugs; Z79.899 Other long term (current) drug therapy; Z88.2 Allergy status to sulfonamides; Z88.1 Allergy status to other antibiotic agents; Z88.5 Allergy status to narcotic agent

== ENCOUNTER → 2020-07-09 | Outpatient (REF) | payer SELFPAY ==
[~2020-07-09] MED LIST changes: +ALCOPAD25 TOP; +ASPI81TA26 PO; +BLOOKIT21 XX; +D31000TA2 PO; +GLUC1TES2 XX; +LANC30MI XX; +LANTINJ4 SC; +MELA3TAB30 PO; +METF-839 PO; +PEN1MIS22 SC
== END ==
LOC: M LABCAHC 09:17
PROVIDERS: ATTEND Pediatrics
DX: Z20.828 Contact with and (suspected) exposure to other viral communicable diseases (principal)

== ENCOUNTER → 2020-07-16 | Outpatient (REF) | payer MEDICARE, MEDICAID | LOC: M LAB REF 16:44 | PROVIDERS: ATTEND Nurse Practitioner Family | DX: N39.0 Urinary tract infection, site not specified (principal) ==

== ENCOUNTER → 2020-10-31 | Outpatient (REF) | payer MEDICARE, MEDICAID ==
[2020-10-31 14:28] LABS: ALBUMIN 3.9 GM/DL (3.2-5.2); BILIRUBIN,TOTAL 0.3 MG/DL (0.2-1.0); CALCIUM LEVEL 9.6 MG/DL (8.8-10.2); CREATININE FOR GFR 1.28 MG/DL (0.55-1.30); GLOMERULAR FILTRATION RATE 42.3 (>32); POTASSIUM SERUM 4.5 MEQ/L (3.5-5.1); TOTAL PROTEIN 7.2 GM/DL (6.4-8.2)
[2020-10-31 14:36] LABS: TOTAL 25(OH) VITAMIN D 24.7 NG/ML (30.0-100.0)
[2020-10-31 15:11] LABS: HEMOGLOBIN A1c 6.8 %
== END ==
LOC: M SFHCPLAZ 09:08
PROVIDERS: ATTEND Family Medicine
DX: N18.30 Chronic kidney disease, stage 3 unspecified (principal); E11.9 Type 2 diabetes mellitus without complications; E55.9 Vitamin D deficiency, unspecified
CPT/HCPCS: 36415; 80053; 82306; 83036; G0463

== ENCOUNTER 2020-12-02 17:47 | Inpatient (IN) | payer MEDICARE, MEDICAID ==
[~2020-12-02] VITALS: Ht 154.9 cm; Wt 70.0 kg
[2020-12-02] MEDS: HumaLOG INSULIN (NovoLOG) PER UNIT SC SCH (00:30)
[2020-12-02] MEDS: LEVEMIR (INSULIN DETEMIR) 1 UNITS/0.01ML SC SCH (00:37)
[~2020-12-02 17:47] MED LIST changes: -BASA100I SC
[2020-12-02] MEDS ORDERED: cefTRIAXone SOD 1 GM in D5W MINI-BAG PLUS 50 ML IV ONE (20:00)
[2020-12-02] MEDS ORDERED: NS 500 ML IV ONE ×2 (20:00→22:35)
[2020-12-02 21:15] LABS: HEMATOCRIT 39.1 % (36.0-47.0); HEMOGLOBIN 12.8 g/dl (12.0-15.5); MEAN CORPUSCULAR HEMOGLOBIN 30.1 pg (27.0-33.0); MEAN CORPUSCULAR HGB CONC 32.7 g/dl (32.0-36.5); PLATELET COUNT, AUTOMATED 270 10^3/uL (150-450); RED BLOOD COUNT 4.25 10^6/uL (4.00-5.40); WHITE BLOOD COUNT 7.9 10^3/uL (4.0-10.0)
--- NOTE | 2020-12-02 21:23 | REPVR ---
PROCEDURE INFORMATION: Exam: XR Chest Exam date and time: 12/02/2020 8:21 PM Age: 85 years old Clinical indication: Other: Sepsis TECHNIQUE: Imaging protocol: XR of the chest. Views: 1 view. COMPARISON: [facility] PORTABLE CHEST X-RAY 06/04/2020 11:36 AM FINDINGS: Lungs: There is a streaky area of increased density at the left lung base which may be atelectasis or infiltrate. The patient should have a PA and lateral view of the chest for further evaluation of this and to exclude any possibility of underlying nodule. Pleural spaces: There is no evidence of pneumothorax or pleural effusion. Small amount of fluid within the minor fissure on the right. Heart/Mediastinum: There is prominence left side of the heart. Bones/joints: Unremarkable. IMPRESSION: Streaky increased density at the left lung base may be atelectasis and infiltrate. I would recommend a PA and lateral view of the chest with a better depth of inspiration to exclude any possibility of nodular pathology at the left lung base. Electronically signed by: Aris Narvaez On 12/02/2020 21:23:02 PM
[2020-12-02 21:36] LABS: ALBUMIN 3.6 GM/DL (3.2-5.2); ALT/SGPT 23 U/L (12-78); BILIRUBIN,TOTAL 0.3 MG/DL (0.2-1.0); BLOOD UREA NITROGEN 50 MG/DL (7-18); CALCIUM LEVEL 9.2 MG/DL (8.8-10.2); CARBON DIOXIDE LEVEL 25 MEQ/L (21-32); CHLORIDE LEVEL 102 MEQ/L (98-107); CPK CREATINE PHOSPHOKINASE 132 U/L (26-192); CREATININE FOR GFR 1.25 MG/DL (0.55-1.30); GLOMERULAR FILTRATION RATE 43.5 (>32); GLUCOSE, FASTING 142 MG/DL (70-100); MB/CK RELATIVE INDEX 1.52 (< OR =4); POTASSIUM SERUM 4.1 MEQ/L (3.5-5.1); SODIUM LEVEL 138 MEQ/L (136-145); TOTAL PROTEIN 6.6 GM/DL (6.4-8.2); TROPONIN I < 0.02 NG/ML (< 0.10)
[2020-12-02] MEDS ORDERED: METF-839 PO (22:55)
[2020-12-02] MEDS ORDERED: BASA100I SC ×2 (22:55)
[2020-12-02] MEDS: ASPIRIN 81MG ENTERIC TABLET PO SCH (23:00)
[2020-12-02] MEDS: LATANOPROST 0.005% OPHTH SOLN 2.5 ML OU SCH (23:00)
[2020-12-02] MEDS ORDERED: GLUCOSE 4GM CHEW TABLET PO PRN (23:25)
[2020-12-02] MEDS ORDERED: GLUCAGON INJ 1MG VIAL SC PRN (23:25)
[2020-12-02] MEDS ORDERED: DEXTROSE 50% 50 ML SYRINGE IV PRN (23:25)
[2020-12-02 23:39] LABS: RSV AMPLIFICATION NEGATIVE (NEGATIVE)
--- NOTE | 2020-12-03 00:15 | HPEPDOC ---
[facility] Medical History & Physical Date of Admission December 02, 2020 Date of Service: December 02, 2020 Primary Care Physician: Brian Wilkins MD Attending Physician: DEXTER RAMSEY MD History and Physical CHIEF COMPLAINT: confusion HISTORY OF PRESENT ILLNESS: Norma is an 85 year old female who presented to the ED today with 1 day history of confusion. Her daughter in law is present and provides most of the history as the patient has some baseline dementia. Patient was feeling well yesterday, but had an appointment scheduled with PCP office today due to poorly regulated blood glucose levels at home. According to daughter in law, the patient was not her usual self since she work up this morning. The patient has reported some intermittent dizziness. The patient was also noted to have an incontinent BM without notifying her family members. Daughter in law states that she typically has incontinence of bladder and bowel, but is good about letting someone know. They are not sure how long she was sitting in the BM before her family became aware and changed her Depends. The patient now reports a rash and some irritation on her buttocks. In the PCP office, she was diagnosed with a UTI and instructed to report to the ED if she developed any further symptoms. The patient continued to have dizziness in the car ride home and the daughter in law decided to bring her in for further evaluation. PAST MEDICAL HISTORY: Dementia Diabetes mellitus CKD stage 3 HTN Aortic stenosis HLD Osteoporosis Depression GERD Renal cell carcinoma s/p resection Glaucoma PAST SURGICAL HISTORY: 2 C-sections Tubal ligation Lipoma removal x2 (right shoulder, neck) Thyroid biopsy, benign nodule Right partial nephrectomy for RCC Bilateral cataract removal SOCIAL HISTORY: Never smoker. No alcohol use. No illicit substance use. Lives at home with son and daughter in law who help take care of her. FAMILY HISTORY: Father with history of diabetes. Mother . Son alive with hx of CVA in his 30s. ALLERGIES: Please see below. REVIEW OF SYSTEMS: CONSTITUTIONAL: Denies fevers, chills, night sweats, fatigue, unexpected change in weight. HEENT: Denies change in vision, change in hearing. CARDIOVASCULAR: Denies chest pain, palpitations, shortness of breath, lightheadedness. RESPIRATORY: Denies dyspnea, cough, wheezing. GASTROINTESTINAL: Endorses bowel incontinence with intermittent diarrhea at baseline. Denies nausea, vomiting, abdominal pain, constipation, blood in stool. GENITOURINARY: Endorses urinary incontinence at baseline. Denies dysuria, urinary frequency, urinary urgency. SKIN: Endorses rash on buttocks MUSCULOSKELETAL: Denies new joint pain or muscle aches. NEUROLOGICAL: Endorses confusion, dizziness. Denies headache, weakness. PSYCHIATRIC: Denies change in mood. HOME MEDICATIONS: Please see below. PHYSICAL EXAMINATION: VITAL SIGNS: See below GENERAL: Alert, comfortable, in no acute distress HEENT: Normocephalic, atraumatic, PERRLA, EOMI, moist mucous membranes NECK: Supple, trachea midline, no lymphadenopathy CARDIOVASCULAR: Regular rate and rhythm, normal S1 and S2. 3/6 systolic ejection murmur present. RESPIRATORY: Clear to auscultation bilaterally with equal air entry bilaterally. No wheezing, rhonchi, or rales. ABDOMEN: Soft, nontender, nondistended, bowel sounds present EXTREMITIES: Trace pedal edema. Pulses 2+/4 in bilateral upper and lower extremities NEUROLOGIC: Alert and oriented x2 to person and place. Not oriented to time. Cranial nerves 2-12 grossly intact. No focal deficits appreciated PSYCHIATRIC: Mood and affect appropriate LABORATORY DATA: See below. IMAGING: - CXR Streaky increased density at the left lung base may be atelectasis and infiltrate. I would recommend a PA and lateral view of the chest with a better depth of inspiration to exclude any possibility of nodular pathology at the left lung base. MICROBIOLOGY: Please see below. ASSESSMENT: 85 year old female with PMHx of dementia, diabetes mellitus, CKD stage 3, HTN, HLD, GERD, renal cell carcinoma s/p resection presented to the ED with 1 day hx of confusion and dizziness, found to have UA suggestive of UTI with chronic incontinence, admitted for IV antibiotics. PLAN: 1. Confusion 2/2 UTI - UA with nitrates, trace leukocyte esterase, WBC, and bacteria - no evidence of sepsis currently. Monitor on telemetry. - s/p IV fluids, will hold off on further fluids as she has trace edema - Urine culture pending. Blood cultures x2 pending. - IV ceftriaxone q24 hr. 2. Abnormal portable CXR - shows atelectasis vs infiltrate, f/u repeat with PA and lateral views - no clinical symptoms of pneumonia, on abx for UTI coverage with ceftriaxone - incentive spirometry - hx aspiration 1 year ago per family, continue mechanical soft diet 3. Diabetes mellitus - hold home metformin. continue home aspirin - SSI ACHS. Levemir 10 units BID. Hypoglycemic protocol - consistent carb diet 4. HTN - continue home losartan, amlodipine. - hold home Lasix 5. CKD stage 3 - Cr at baseline. monitor BMP daily. 6. HLD - continue home statin 7. GERD - continue home famotidine 8. Glaucoma - continue home eye drops DVT prophylaxis: SC heparin Disposition: admitted to med/surg pending clinical improvement Vital Signs Vital Signs Date Time Temp Pulse Resp B/P (MAP) Pulse Ox O2 Delivery O2 Flow Rate FiO2 12/02/20 20:30 12/02/20 17:48 99.2 66 14 95 Room Air Laboratory Data Labs 24H Laboratory Tests 2 12/02/20 20:41: Nucleated Red Blood Cells % (auto) 0.0, Anion Gap 11, Glomerular Filtration Rate 43.5, Lactic Acid Level 1.4, Calcium Level 9.2, Total Bilirubin 0.3, Aspartate Amino Transf (AST/SGOT) 13, Alanine Aminotransferase (ALT/SGPT) 23, Alkaline Phosphatase 49, Total Creatine Kinase 132, Creatine Kinase MB 2.0, Creatine Kinase MB Relative Index 1.52, Troponin I < 0.02, Total Protein 6.6, Albumin 3.6, Albumin/Globulin Ratio 1.2 12/02/20 22:03: Urine Color YELLOW, Urine Appearance HAZY, Urine pH 5.0, Urine Specific Marvell 1.017, Urine Protein NEGATIVE, Urine Glucose (UA) NEGATIVE, Urine Ketones NEGATIVE, Urine Blood 1+H, Urine Nitrite POSITIVEH, Urine Bilirubin NEGATIVE, Urine Urobilinogen 0.2, Urine Leukocyte Esterase TRACEH, Urine WBC (Auto) 7H, Urine RBC (Auto) 2, Urine Hyaline Casts (Auto) 0, Urine Bacteria (Auto) 2+H, Urine Squamous Epithelial Cells 3, Urine Mucus (Auto) SMALL, Urine Sperm (Auto) 12/02/20 22:55: Coronavirus (COVID-19)(PCR) NEGATIVE, Influenza Type A (RT-PCR) NEGATIVE, Influenza Type B (RT-PCR) NEGATIVE, Respiratory Syncytial Virus (PCR) NEGATIVE CBC/BMP Laboratory Tests 12/02/20 20:41 Microbiology Microbiology 12/02/20 Urine Culture, Received Pending 12/02/20 Blood Culture, Received Pending Home Medications Scheduled Amlodipine Besylate (Norvasc) 5 Mg Tablet, 5 MG PO DAILY Aspirin (Aspirin EC) 81 Mg Tablet.dr, 81 MG PO QHS Brinzolamide/Brimonidine Tart (Simbrinza 1%-0.2% Eye Drops) 8 Ml Drops.susp, 1 DROP OU QHS Cholecalciferol (Vitamin D3) (Vitamin D3) 1,000 Unit Tablet, 1,000 UNITS PO DAILY Citalopram Hydrobromide (Citalopram HBr) 20 Mg Tablet, 30 MG PO DAILY Famotidine (Famotidine) 20 Mg Tablet, 20 MG PO DAILY Furosemide (Furosemide) 20 Mg Tablet, 20 MG PO DAILY Insulin Glargine,Hum.rec.anlog (Basaglar Kwikpen U-100) 100 Unit/1 Ml Insuln.pen, 10 UNIT SC DAILY HOLD IF BGL<100 Insulin Glargine,Hum.rec.anlog (Basaglar Kwikpen U-100) 100 Unit/1 Ml Insuln.p en, 15 UNIT SC QPM TAKES AT DINNERTIME, HOLD IF BGL<100 Latanoprost (Xalatan) 0.005% 2.5ML Drops, 1 DROP OU QHS Losartan Potassium (Losartan Potassium) 100 Mg Tablet, 100 MG PO QHS Metformin HCl (Metformin HCl) 500 Mg Tablet, 500 MG PO BID Simvastatin (Simvastatin) 20 Mg Tablet, 20 MG PO QHS Scheduled PRN Melatonin (Melatonin) 3 Mg Tablet, 3 MG PO QHS PRN for INSOMNIA Propylene Glycol/Peg 400/Pf (Systane 0.3-0.4% Eye Drop) 1 Each Droperette, 1 DROP OU QID PRN for DRY EYES Allergies Coded Allergies: Sulfa (Sulfonamide Antibiotics) (Verified Allergy, Intermediate, hives, 12/14/18) Quinolones (Verified Adverse Reaction, Intermediate, psychosis, 12/14/18) hydromorphone (Verified Adverse Reaction, Intermediate, psychosis, 12/14/18) GME ATTESTATION GME ATTESTATION My faculty preceptor for this patient encounter was physically present during the encounter and was fully available. All aspects of the patient interview, examination, medical decision making process, and medical care plan development were reviewed and approved by the faculty preceptor. The faculty preceptor is aware and concurs with the plan as stated in the body of this note and will att est to such by his/her cosignature. ATTENDING NOTE I, Dexter Ramsey MD, have independently examined this patient and performed my own physical exam, as well as reviewed the documentation and edited where necessary. I have discussed in detail with the resident / student the findings and plan of treatment as documented by the resident / student and edited their note. I agree with their findings and treatment plan and have edited their documentation. JOSE DE JESUS DLAY D.O. December 03, 2020 00:15 DEXTER RAMSEY MD December 06, 2020 16:45
[2020-12-03] MEDS: SIMVASTATIN 20 MG TAB PO SCH ×2 (00:34→20:30)
[2020-12-03] MEDS: LOSARTAN 50MG TABLET PO SCH ×2 (00:35→20:30)
[2020-12-03] MEDS: HEPARIN SOD (PORCINE) 5000UNITS/ML 1ML VIAL/SYRINGE SC SCH ×3 (06:24→20:31)
[2020-12-03 06:49] LABS: HEMATOCRIT 37.1 % (36.0-47.0); HEMOGLOBIN 12.1 g/dl (12.0-15.5); MEAN CORPUSCULAR HEMOGLOBIN 29.9 pg (27.0-33.0); MEAN CORPUSCULAR HGB CONC 32.6 g/dl (32.0-36.5); MEAN CORPUSCULAR VOLUME 91.6 fl (80.0-96.0); PLATELET COUNT, AUTOMATED 249 10^3/uL (150-450); RED BLOOD COUNT 4.05 10^6/uL (4.00-5.40)
[2020-12-03 07:02] LABS: CALCIUM LEVEL 8.1 MG/DL (8.8-10.2); CREATININE FOR GFR 1.02 MG/DL (0.55-1.30); POTASSIUM SERUM 3.4 MEQ/L (3.5-5.1)
[2020-12-03] MEDS: HumaLOG INSULIN (NovoLOG) PER UNIT SC SCH ×4 (07:30→20:31)
[2020-12-03 08:00] VITALS: BP 141/61
[2020-12-03] MEDS: LEVEMIR (INSULIN DETEMIR) 1 UNITS/0.01ML SC SCH ×2 (09:00→20:31)
[2020-12-03] MEDS: FAMOTIDINE 20 MG TAB PO SCH (09:42)
[2020-12-03] MEDS: VITAMIN D 1,000 INTERNATIONAL UNITS TABLET PO SCH (09:42)
[2020-12-03] MEDS: amLODIPine 5 MG TAB PO SCH (09:44)
[2020-12-03] MEDS: CitaloPRAM (CeleXA) 20 MG TAB PO SCH (09:44)
--- NOTE | 2020-12-03 10:18 | REP ---
INDICATION: abnormal portable exam. COMPARISON: Comparison portable radiograph 02 Dec 2020. Comparison is also made with 04 June 2020 prior study. TECHNIQUE: Two views.. FINDINGS: The lungs are better inflated on today's chest x-ray. There is linear fibrosis in the right mid lung zone which is unchanged. Lung minor are otherwise clear. The pleural angles are sharp. Heart is not felt to be enlarged. The aorta is slightly tortuous. Pulmonary vasculature is not increased. EKG monitoring electrodes are seen. Mild degenerative disc changes are noted in the thoracic spine. IMPRESSION: Linear fibrosis right mid lung zone. Otherwise no acute disease.. <Electronically signed by Dwayne Parrish > 12/03/20 101
[2020-12-03] MEDS ORDERED: POTASSIUM CHLORIDE 10 MEQ SR TABLET PO ONE (10:35)
--- NOTE | 2020-12-03 11:48 | IPNPDOC ---
Text Note Date of Service The patient was seen on 12/03/20. NOTE Subjective: No any acute events overnight. Patient stated that she feels better today. She is awake, alert and oriented. She answered my questions appropriately Objective: GENERAL APPEARANCE: NAD HEENT: no scleral icterus, no JVD, EOMI CARDIOVASCULAR: S1S2 LUNGS: CTA ABDOMEN: soft & not tender w palpitation MUSCULOSKELETAL: no cyanosis, no swelling INTEGUMENT: no generalized pallor NEUROLOGICAL: cranial nerve function from 2-12 intact intact, follows commands, speech not dysarthric Assessment and plan Patient is 85 year old female with PMHx of dementia, diabetes mellitus, CKD stage 3, HTN, HLD, GERD, renal cell carcinoma s/p resection presented to the ED with 1 day hx of confusion and dizziness, found to have UA suggestive of UTI with chronic incontinence, admitted for IV antibiotics. Metabolic encephalopathy Most likely secondary to UTIs superimposed with dementia UA positive for pyuria, await culture Continue ceftriaxone IV UTI See above Hyperkalemia Replaced Type 2 diabetes Insulin sliding scale Diabetes diet I reduced the dose of detemir to 5 urine twice a day to keep glucose level in the range 140-180 Lung atelectasis Incentive spirometry Hypertension Continue home meds Blood pressures under control CKD3 Continue to monitor Creatinine at baseline Hyperlipidemia Continue statin Acid reflux Continue famotidine Glaucoma continue home eye drops DVT prophylaxis: SC heparin VS,Fishbone, I+O VS, Fishbone, I+O Laboratory Tests 12/02/20 20:41 12/03/20 06:24 Vital Signs Date Time Temp Pulse Resp B/P (MAP) Pulse Ox O2 Delivery O2 Flow Rate FiO2 12/03/20 09:44 59 141/61 12/02/20 21:30 13 97 Room Air 12/02/20 17:48 99.2 I&O- Last 24 Hours up to 6 AM 12/03/20 06:00 Intake Total 1050 ml Balance 1050 ml KELVIN LAGOS DO December 03, 2020 11:48
[2020-12-03 14:01] VITALS: BP 161/71
[2020-12-03 14:48] VITALS: BP 134/68
--- NOTE | 2020-12-03 17:45 | ECGEPIP ---
[facility] - ED Test Date: 2020-12-02 Pat Name: CHALO BONNER Department: Room: [place] [address] Gender: Female [employer] Operator: HUBERT : [id number] Requested By: Curly Rojas Order Number: [id number] Reading MD: Dalia Fish Measurements Intervals [place] Rate: 61 P: 55 GA: 166 QRS: -54 QRSD: 148 T: 59 QT: 464 QTc: 467 Interpretive Statements Normal sinus rhythm Right bundle branch block Left anterior fascicular block Bifascicular block Minimal voltage criteria for LVH, may be normal variant ( R in aVL ) Septal infarct , age undetermined Possible Lateral infarct , age undetermined decreased rate 06/04/20 Electronically Signed on 12-03-2020 17:45:06 EDT by Dalia Fish
[2020-12-03] MEDS: cefTRIAXone SOD 1 GM in D5W MINI-BAG PLUS 50 ML IV SCH (20:19)
[2020-12-03] MEDS: ASPIRIN 81MG ENTERIC TABLET PO SCH (20:29)
[2020-12-03] MEDS: RAMELTEON 8 MG TAB (ROZEREM) PO SCH (20:30)
[2020-12-03] MEDS: LATANOPROST 0.005% OPHTH SOLN 2.5 ML OU SCH (20:30)
[2020-12-03 22:00] VITALS: BP 137/64
[2020-12-04 06:00] VITALS: BP 128/66
[2020-12-04] MEDS: HEPARIN SOD (PORCINE) 5000UNITS/ML 1ML VIAL/SYRINGE SC SCH ×3 (06:48→20:40)
[2020-12-04] MEDS: LEVEMIR (INSULIN DETEMIR) 1 UNITS/0.01ML SC SCH ×2 (09:12→20:39)
[2020-12-04] MEDS: HumaLOG INSULIN (NovoLOG) PER UNIT SC SCH ×4 (09:13→20:39)
[2020-12-04] MEDS: VITAMIN D 1,000 INTERNATIONAL UNITS TABLET PO SCH (09:13)
[2020-12-04] MEDS: CitaloPRAM (CeleXA) 20 MG TAB PO SCH (09:13)
[2020-12-04] MEDS: amLODIPine 5 MG TAB PO SCH (09:14)
--- NOTE | 2020-12-04 10:53 | IPNPDOC ---
Text Note Date of Service The patient was seen on 12/04/20. NOTE Subjective: No any acute events overnight. Patient stated that she feels much better today. She is alert and oriented Objective: GENERAL APPEARANCE: NAD HEENT: no scleral icterus, no JVD, EOMI CARDIOVASCULAR: S1S2 LUNGS: CTA ABDOMEN: soft & not tender w palpitation MUSCULOSKELETAL: no cyanosis, no swelling INTEGUMENT: no generalized pallor NEUROLOGICAL: cranial nerve function from 2-12 intact intact, follows commands, speech not dysarthric Assessment and plan Patient is 85 year old female with PMHx of dementia, diabetes mellitus, CKD stage 3, HTN, HLD, GERD, renal cell carcinoma s/p resection presented to the ED with 1 day hx of confusion and dizziness, found to have UA suggestive of UTI with chronic incontinence, admitted for IV antibiotics. Metabolic encephalopathy Resolved Most likely secondary to UTIs superimposed with dementia UA positive for pyuria, await culture Blood culture negative Continue ceftriaxone IV UTI See above Hyperkalemia Replaced Type 2 diabetes Insulin sliding scale Diabetes diet Detemir twice a day Lung atelectasis Incentive spirometry Hypertension Continue home meds Blood pressures under control CKD3 Continue to monitor Creatinine at baseline Hyperlipidemia Continue statin Acid reflux Continue famotidine Glaucoma continue home eye drops DVT prophylaxis: SC heparin VS,Fishbone, I+O VS, Fishbone, I+O Vital Signs Date Time Temp Pulse Resp B/P (MAP) Pulse Ox O2 Delivery O2 Flow Rate FiO2 12/04/20 09:14 64 112/62 12/04/20 06:00 98.0 18 92 Room Air I&O- Last 24 Hours up to 6 AM 12/04/20 06:00 Intake Total 1340 ml Output Total 1000 ml Balance 340 ml KELVIN LAGOS DO December 04, 2020 10:53
[2020-12-04 14:00] VITALS: BP 124/69
[2020-12-04] MEDS: RAMELTEON 8 MG TAB (ROZEREM) PO SCH (20:38)
[2020-12-04] MEDS: LOSARTAN 50MG TABLET PO SCH (20:38)
[2020-12-04] MEDS: SIMVASTATIN 20 MG TAB PO SCH (20:38)
[2020-12-04] MEDS: ASPIRIN 81MG ENTERIC TABLET PO SCH (20:38)
[2020-12-04] MEDS: cefTRIAXone SOD 1 GM in D5W MINI-BAG PLUS 50 ML IV SCH (20:39)
[2020-12-04] MEDS: LATANOPROST 0.005% OPHTH SOLN 2.5 ML OU SCH (20:40)
[2020-12-04 22:00] VITALS: BP 124/67
[2020-12-05] MEDS: HEPARIN SOD (PORCINE) 5000UNITS/ML 1ML VIAL/SYRINGE SC SCH ×3 (05:17→21:05)
[2020-12-05 06:00] VITALS: BP 123/66
[2020-12-05] MEDS: amLODIPine 5 MG TAB PO SCH (09:00)
[2020-12-05] MEDS: FAMOTIDINE 20 MG TAB PO SCH (09:07)
[2020-12-05] MEDS: VITAMIN D 1,000 INTERNATIONAL UNITS TABLET PO SCH (09:07)
[2020-12-05] MEDS: HumaLOG INSULIN (NovoLOG) PER UNIT SC SCH ×4 (09:08→21:00)
[2020-12-05] MEDS: CitaloPRAM (CeleXA) 20 MG TAB PO SCH (09:08)
[2020-12-05] MEDS: LEVEMIR (INSULIN DETEMIR) 1 UNITS/0.01ML SC SCH ×2 (09:08→21:05)
[2020-12-05 09:16] VITALS: BP 108/54
--- NOTE | 2020-12-05 11:05 | IPNPDOC ---
Text Note Date of Service The patient was seen on 12/05/20. NOTE Subjective: No any acute events overnight. Patient denied fever, chills, nausea, vomiting or dysuria. Patient stated that she feels better today Objective: GENERAL APPEARANCE: NAD HEENT: no scleral icterus, no JVD, EOMI CARDIOVASCULAR: S1S2 LUNGS: CTA ABDOMEN: soft & not tender w palpitation MUSCULOSKELETAL: no cyanosis, no swelling INTEGUMENT: no generalized pallor NEUROLOGICAL: cranial nerve function from 2-12 intact intact, follows commands, speech not dysarthric Assessment and plan Patient is 85 year old female with PMHx of dementia, diabetes mellitus, CKD stage 3, HTN, HLD, GERD, renal cell carcinoma s/p resection presented to the ED with 1 day hx of confusion and dizziness, found to have UA suggestive of UTI with chronic incontinence, admitted for IV antibiotics. Metabolic encephalopathy Resolved Most likely secondary to UTIs superimposed with dementia UA positive for pyuria, Escherichia coli pansensitive Blood culture negative Nitrofurantoin for 3 days UTI See above Electrolytes abnormalities Replaced Type 2 diabetes Insulin sliding scale Diabetes diet Detemir twice a day Lung atelectasis Incentive spirometry Hypertension Continue home meds Blood pressures under control CKD3 Continue to monitor Creatinine at baseline Hyperlipidemia Continue statin Acid reflux Continue famotidine Glaucoma continue home eye drops DVT prophylaxis: SC heparin Patient transferred to [facility] oNa REYES, I+O VSNoa I+O Vital Signs Date Time Temp Pulse Resp B/P (MAP) Pulse Ox O2 Delivery O2 Flow Rate FiO2 12/05/20 09:16 60 108/54 (72) 12/05/20 06:00 97.6 18 96 12/04/20 14:00 Room Air I&O- Last 24 Hours up to 6 AM 12/05/20 06:00 Intake Total 960 ml Output Total 650 ml Balance 310 ml KELVIN LAGOS DO December 05, 2020 11:05
[2020-12-05 14:00] VITALS: BP 138/66
[2020-12-05] MEDS: SIMVASTATIN 20 MG TAB PO SCH (21:04)
[2020-12-05] MEDS: NITROFURANTOIN (MACROBID) 100 MG CAP PO SCH (21:04)
[2020-12-05] MEDS: LATANOPROST 0.005% OPHTH SOLN 2.5 ML OU SCH (21:05)
[2020-12-05] MEDS: RAMELTEON 8 MG TAB (ROZEREM) PO SCH (21:05)
[2020-12-05] MEDS: ASPIRIN 81MG ENTERIC TABLET PO SCH (21:05)
[2020-12-05] MEDS: LOSARTAN 50MG TABLET PO SCH (21:06)
[2020-12-05 22:00] VITALS: BP 133/74
[2020-12-06] MEDS: HEPARIN SOD (PORCINE) 5000UNITS/ML 1ML VIAL/SYRINGE SC SCH ×3 (05:19→21:52)
[2020-12-06 06:00] VITALS: BP 113/63
[2020-12-06] MEDS: LEVEMIR (INSULIN DETEMIR) 1 UNITS/0.01ML SC SCH ×2 (09:00→21:52)
[2020-12-06] MEDS: amLODIPine 5 MG TAB PO SCH (09:00)
[2020-12-06] MEDS: HumaLOG INSULIN (NovoLOG) PER UNIT SC SCH ×4 (09:15→21:00)
[2020-12-06] MEDS: VITAMIN D 1,000 INTERNATIONAL UNITS TABLET PO SCH (09:17)
[2020-12-06] MEDS: CitaloPRAM (CeleXA) 20 MG TAB PO SCH (09:17)
[2020-12-06] MEDS: NITROFURANTOIN (MACROBID) 100 MG CAP PO SCH ×2 (10:31→21:52)
[2020-12-06] MEDS: RAMELTEON 8 MG TAB (ROZEREM) PO SCH (21:51)
[2020-12-06] MEDS: ASPIRIN 81MG ENTERIC TABLET PO SCH (21:51)
[2020-12-06] MEDS: SIMVASTATIN 20 MG TAB PO SCH (21:52)
[2020-12-06] MEDS: LOSARTAN 50MG TABLET PO SCH (21:53)
[2020-12-06] MEDS: LATANOPROST 0.005% OPHTH SOLN 2.5 ML OU SCH (21:55)
[2020-12-07 06:00] VITALS: BP 102/53
[2020-12-07] MEDS: HEPARIN SOD (PORCINE) 5000UNITS/ML 1ML VIAL/SYRINGE SC SCH ×3 (06:13→21:32)
[2020-12-07] MEDS: HumaLOG INSULIN (NovoLOG) PER UNIT SC SCH ×4 (07:30→21:00)
[2020-12-07] MEDS: LEVEMIR (INSULIN DETEMIR) 1 UNITS/0.01ML SC SCH ×2 (07:44→21:35)
[2020-12-07 08:30] VITALS: BP 102/54
[2020-12-07] MEDS: amLODIPine 5 MG TAB PO SCH (09:00)
[2020-12-07] MEDS: CitaloPRAM (CeleXA) 20 MG TAB PO SCH (09:59)
[2020-12-07] MEDS: FAMOTIDINE 20 MG TAB PO SCH (10:01)
[2020-12-07] MEDS: NITROFURANTOIN (MACROBID) 100 MG CAP PO SCH ×2 (10:01→21:32)
[2020-12-07] MEDS: VITAMIN D 1,000 INTERNATIONAL UNITS TABLET PO SCH (10:02)
[2020-12-07] MEDS: LATANOPROST 0.005% OPHTH SOLN 2.5 ML OU SCH (21:32)
[2020-12-07] MEDS: RAMELTEON 8 MG TAB (ROZEREM) PO SCH (21:33)
[2020-12-07] MEDS: SIMVASTATIN 20 MG TAB PO SCH (21:33)
[2020-12-07] MEDS: ASPIRIN 81MG ENTERIC TABLET PO SCH (21:33)
[2020-12-07] MEDS: LOSARTAN 50MG TABLET PO SCH (21:37)
[2020-12-08] MEDS: HEPARIN SOD (PORCINE) 5000UNITS/ML 1ML VIAL/SYRINGE SC SCH ×3 (05:35→21:14)
[2020-12-08 06:00] VITALS: BP 137/65
[2020-12-08] MEDS: LEVEMIR (INSULIN DETEMIR) 1 UNITS/0.01ML SC SCH ×2 (08:05→21:14)
[2020-12-08] MEDS: HumaLOG INSULIN (NovoLOG) PER UNIT SC SCH ×4 (08:05→21:00)
[2020-12-08] MEDS: NITROFURANTOIN (MACROBID) 100 MG CAP PO SCH ×2 (08:05→21:17)
[2020-12-08] MEDS: CitaloPRAM (CeleXA) 20 MG TAB PO SCH (08:06)
[2020-12-08] MEDS: amLODIPine 5 MG TAB PO SCH (08:06)
[2020-12-08] MEDS: VITAMIN D 1,000 INTERNATIONAL UNITS TABLET PO SCH (08:06)
[2020-12-08] MEDS: LOSARTAN 50MG TABLET PO SCH (21:00)
[2020-12-08] MEDS: ASPIRIN 81MG ENTERIC TABLET PO SCH (21:14)
[2020-12-08] MEDS: RAMELTEON 8 MG TAB (ROZEREM) PO SCH (21:14)
[2020-12-08] MEDS: SIMVASTATIN 20 MG TAB PO SCH (21:17)
[2020-12-08] MEDS: LATANOPROST 0.005% OPHTH SOLN 2.5 ML OU SCH (21:17)
[2020-12-09] MEDS: HEPARIN SOD (PORCINE) 5000UNITS/ML 1ML VIAL/SYRINGE SC SCH ×3 (05:08→21:24)
[2020-12-09 06:00] VITALS: BP 117/58
[2020-12-09 07:48] VITALS: BP 86/49
[2020-12-09] MEDS: amLODIPine 5 MG TAB PO SCH (07:50)
[2020-12-09] MEDS ORDERED: NS 1,000 ML IV ONE (07:50)
[2020-12-09] MEDS: LEVEMIR (INSULIN DETEMIR) 1 UNITS/0.01ML SC SCH ×2 (08:05→21:24)
[2020-12-09] MEDS: HumaLOG INSULIN (NovoLOG) PER UNIT SC SCH ×4 (08:05→20:59)
[2020-12-09] MEDS: VITAMIN D 1,000 INTERNATIONAL UNITS TABLET PO SCH (08:05)
[2020-12-09] MEDS: FAMOTIDINE 20 MG TAB PO SCH (08:06)
[2020-12-09] MEDS: CitaloPRAM (CeleXA) 20 MG TAB PO SCH (08:06)
[2020-12-09 08:24] VITALS: BP 119/51
[2020-12-09] MEDS: RAMELTEON 8 MG TAB (ROZEREM) PO SCH (21:23)
[2020-12-09] MEDS: SIMVASTATIN 20 MG TAB PO SCH (21:23)
[2020-12-09] MEDS: ASPIRIN 81MG ENTERIC TABLET PO SCH (21:23)
[2020-12-09] MEDS: LOSARTAN 50MG TABLET PO SCH (21:24)
[2020-12-09] MEDS: LATANOPROST 0.005% OPHTH SOLN 2.5 ML OU SCH (21:24)
[2020-12-10] MEDS: HEPARIN SOD (PORCINE) 5000UNITS/ML 1ML VIAL/SYRINGE SC SCH ×3 (05:30→21:43)
[2020-12-10 06:00] VITALS: BP 132/64
[2020-12-10] MEDS: VITAMIN D 1,000 INTERNATIONAL UNITS TABLET PO SCH (08:37)
[2020-12-10] MEDS: HumaLOG INSULIN (NovoLOG) PER UNIT SC SCH ×4 (08:38→21:00)
[2020-12-10] MEDS: amLODIPine 5 MG TAB PO SCH (08:38)
[2020-12-10] MEDS: CitaloPRAM (CeleXA) 20 MG TAB PO SCH (08:38)
[2020-12-10] MEDS: LEVEMIR (INSULIN DETEMIR) 1 UNITS/0.01ML SC SCH ×2 (08:39→21:43)
[2020-12-10 14:00] VITALS: BP 125/56
[2020-12-10] MEDS: RAMELTEON 8 MG TAB (ROZEREM) PO SCH (21:42)
[2020-12-10] MEDS: LATANOPROST 0.005% OPHTH SOLN 2.5 ML OU SCH (21:42)
[2020-12-10] MEDS: SIMVASTATIN 20 MG TAB PO SCH (21:42)
[2020-12-10] MEDS: ASPIRIN 81MG ENTERIC TABLET PO SCH (21:42)
[2020-12-10] MEDS: LOSARTAN 50MG TABLET PO SCH (21:43)
[2020-12-11 06:00] VITALS: BP 129/63
[2020-12-11] MEDS: HEPARIN SOD (PORCINE) 5000UNITS/ML 1ML VIAL/SYRINGE SC SCH ×2 (06:03→14:02)
[2020-12-11] MEDS: HumaLOG INSULIN (NovoLOG) PER UNIT SC SCH ×2 (07:48→13:12)
[2020-12-11] MEDS: LEVEMIR (INSULIN DETEMIR) 1 UNITS/0.01ML SC SCH (08:01)
[2020-12-11 08:02] VITALS: BP 107/54
[2020-12-11] MEDS: amLODIPine 5 MG TAB PO SCH (08:02)
[2020-12-11] MEDS: VITAMIN D 1,000 INTERNATIONAL UNITS TABLET PO SCH (08:03)
[2020-12-11] MEDS: FAMOTIDINE 20 MG TAB PO SCH (08:03)
[2020-12-11] MEDS: CitaloPRAM (CeleXA) 20 MG TAB PO SCH (08:03)
--- NOTE | 2020-12-11 16:08 | DS.PDOC ---
Discharge Summary General Date of Admission December 02, 2020 at 23:26 Date of Discharge 12/11/20 Discharge Summary PROCEDURES PERFORMED DURING STAY: [None]. ADMITTING DIAGNOSES: UTI Metabolic encephalopathy Type 2 diabetes Lung atelectasis Hypertension CKD3 Hyperlipidemia Acid reflux Glaucoma DISCHARGE DIAGNOSES: UTI Metabolic encephalopathy Type 2 diabetes Lung atelectasis Hypertension CKD3 Hyperlipidemia Acid reflux Glaucoma COMPLICATIONS/CHIEF COMPLAINT: Sepsis,Uti. HISTORY OF PRESENT ILLNESS: Patient is 85 year old female with PMHx of dementia, diabetes mellitus, CKD stage 3, HTN, HLD, GERD, renal cell carcinoma s/p resection presented to the ED with 1 day hx of confusion and dizziness, found to have UA suggestive of UTI with chronic incontinence, admitted for IV antibiotics. HOSPITAL COURSE: During the hospital stay the following issue addressed Metabolic encephalopathy Resolved Most likely secondary to UTIs superimposed with dementia UA positive for pyuria, Escherichia coli pansensitive Blood culture negative Patient received Nitrofurantoin UTI See above Electrolytes abnormalities Replaced Type 2 diabetes Insulin sliding scale Diabetes diet Detemir twice a day Lung atelectasis Incentive spirometry Hypertension Continue home meds Blood pressures under control CKD3 Continue to monitor Creatinine at baseline Hyperlipidemia Continue statin Acid reflux Continue famotidine Glaucoma continue home eye drops DISCHARGE MEDICATIONS: Please see below. ALLERGIES: Please see below. PHYSICAL EXAMINATION ON DISCHARGE: VITAL SIGNS: Please see below. GENERAL APPEARANCE: NAD HEENT: no scleral icterus, no JVD, EOMI CARDIOVASCULAR: S1S2 LUNGS: CTA ABDOMEN: soft & not tender w palpitation MUSCULOSKELETAL: no cyanosis, no swelling INTEGUMENT: no generalized pallor NEUROLOGICAL: cranial nerve function from 2-12 intact intact, follows commands, speech not dysarthric LABORATORY DATA: Please see below. PROGNOSIS: Fair ACTIVITY: [As tolerated]. DIET: Regular DISPOSITION: [facility]. ITEMS TO FOLLOWUP ON ON OUTPATIENT: Follow-up with PCP. DISCHARGE CONDITION: [Stable]. TIME SPENT ON DISCHARGE: 30 minutes. Vital Signs/I&Os Vital Signs Date Time Temp Pulse Resp B/P (MAP) Pulse Ox O2 Delivery O2 Flow Rate FiO2 12/11/20 08:02 60 107/54 12/11/20 06:00 97.5 16 93 Room Air I&O- Last 24 Hours up to 6 AM 12/11/20 06:00 Intake Total 1510 ml Output Total 2400 ml Balance -890 ml Laboratory Data Labs 24H Laboratory Tests 2 12/10/20 16:57: Bedside Glucose (Misc Panel) 167H 12/10/20 20:47: Bedside Glucose (Misc Panel) 165H 12/11/20 05:38: Bedside Glucose (Misc Panel) 149H 12/11/20 11:11: Bedside Glucose (Misc Panel) 148H FSBS Laboratory Tests Test 12/10/20 16:57 12/10/20 20:47 12/11/20 05:38 12/11/20 11:11 Range/Units Bedside Glucose (Misc Panel) 167 165 149 148 83-110 MG/DL Microbiology Microbiology 12/11/20 Respiratory Virus Panel (PCR) ([facility]) - Final, Complete 12/03/20 Blood Culture - Final, Complete NO GROWTH AFTER 5 DAYS 12/02/20 Urine Culture - Final, Complete Escherichia Coli 12/02/20 Blood Culture - Final, Complete NO GROWTH AFTER 5 DAYS Discharge Medications Scheduled Amlodipine Besylate (Norvasc) 5 Mg Tablet, 5 MG PO DAILY, (Reported) Aspirin (Aspirin EC) 81 Mg Tablet.dr, 81 MG PO QHS, (Reported) Brinzolamide/Brimonidine Tart (Simbrinza 1%-0.2% Eye Drops) 8 Ml Drops.susp, 1 DROP OU QHS, (Reported) Cholecalciferol (Vitamin D3) (Vitamin D3) 1,000 Unit Tablet, 1,000 UNITS PO DAILY, (Reported) Citalopram Hydrobromide (Citalopram HBr) 20 Mg Tablet, 30 MG PO DAILY, (Reported) Famotidine (Famotidine) 20 Mg Tablet, 20 MG PO DAILY, (Reported) Furosemide (Furosemide) 20 Mg Tablet, 20 MG PO DAILY, (Reported) Insulin Glargine,Hum.rec.anlog (Basaglar Kwikpen U-100) 100 Unit/1 Ml Insuln.pen, 10 UNIT SC DAILY, (Reported) HOLD IF BGL<100 Insulin Glargine,Hum.rec.anlog (Basaglar Kwikpen U-100) 100 Unit/1 Ml Insuln.pen, 15 UNIT SC QPM, (Reported) TAKES AT DINNERTIME, HOLD IF BGL<100 Latanoprost (Xalatan) 0.005% 2.5ML Drops, 1 DROP OU QHS, (Reported) Losartan Potassium (Losartan Potassium) 100 Mg Tablet, 100 MG PO QHS, (Reported) Metformin HCl (Metformin HCl) 500 Mg Tablet, 500 MG PO BID, (Reported) Simvastatin (Simvastatin) 20 Mg Tablet, 20 MG PO QHS, (Reported) Scheduled PRN Melatonin (Melatonin) 3 Mg Tablet, 3 MG PO QHS PRN for INSOMNIA, (Reported) Propylene Glycol/Peg 400/Pf (Systane 0.3-0.4% Eye Drop) 1 Each Droperette, 1 DROP OU QID PRN for DRY EYES, (Reported) Allergies Coded Allergies: Sulfa (Sulfonamide Antibiotics) (Verified Allergy, Intermediate, hives, 12/14/18) Quinolones (Verified Adverse Reaction, Intermediate, psychosis, 12/14/18) hydromorphone (Verified Adverse Reaction, Intermediate, psychosis, 12/14/18) KELVIN LAGOS DO December 11, 2020 16:08
== END 2020-12-11 14:25 | DRG 689 ==
LOC: M ED 17:47 → M ED INP 23:26 → ENRESERV 12-03 13:31 → M MSPAV 12-03 14:32
PROVIDERS: ADMIT Family Medicine; ATTEND Internal Medicine
DX: N39.0 Urinary tract infection, site not specified (principal); G93.41 Metabolic encephalopathy; J98.11 Atelectasis; E11.9 Type 2 diabetes mellitus without complications; N18.30 Chronic kidney disease, stage 3 unspecified; I12.9 Hypertensive chronic kidney disease with stage 1 through stage 4 chronic kidney disease, or unspecified chronic kidney disease; K21.9 Gastro-esophageal reflux disease without esophagitis; H40.9 Unspecified glaucoma; F03.90 Unspecified dementia, unspecified severity, without behavioral disturbance, psychotic disturbance, mood disturbance, and anxiety; Z79.899 Other long term (current) drug therapy; Z79.82 Long term (current) use of aspirin; Z88.2 Allergy status to sulfonamides; Z88.8 Allergy status to other drugs, medicaments and biological substances; Z88.5 Allergy status to narcotic agent; Z79.4 Long term (current) use of insulin; E87.6 Hypokalemia

== ENCOUNTER → 2020-12-02 | Outpatient (REF) | payer MEDICARE, MEDICAID ==
[~2020-12-02] MED LIST changes: +BASA100I SC
[2020-12-03 11:09] LABS: APPEARANCE, URINE CLOUDY (CLEAR); BACTERIA, URINE AUTO 3+ (NEGATIVE); BILIRUBIN, URINE AUTO NEGATIVE (NEGATIVE); BLOOD, URINE BLOOD 1+ (NEGATIVE); COLOR, URINE YELLOW (YELLOW); GLUCOSE, URINE (UA) AUTO NEGATIVE (NEGATIVE); KETONE, URINE AUTO NEGATIVE (NEGATIVE); LEUKOCYTE ESTERASE, URINE AUTO 2+ (NEGATIVE); MUCUS, URINE SMALL (NEGATIVE); NITRITE, URINE AUTO POSITIVE (NEGATIVE); PROTEIN, URINE AUTO NEGATIVE (NEGATIVE); RBC, URINE AUTO 3 /HPF (0-3); SPECIFIC GRAVITY URINE AUTO 1.017 (1.002-1.035); SQUAMOUS EPITHELIAL CELL UR AU 17 /HPF (0-6); UROBILINOGEN, URINE AUTO 0.2 mg/dL (0.0-2.0); WBC, URINE AUTO 11 /HPF (0-3)
== END ==
LOC: M SFHCPLAZ 10:01
PROVIDERS: ATTEND Student in an Organized Health Care Education/Training Program
DX: E11.9 Type 2 diabetes mellitus without complications (principal)

== ENCOUNTER → 2020-12-17 | Outpatient (REF) ==
[~2020-12-17] MED LIST changes: +BASA100I SC; +DULC10SU2 PR; +MILKSUS3 PO
== END ==
PROVIDERS: ATTEND Internal Medicine
DX: I10 Essential (primary) hypertension (principal); Z53.8 Procedure and treatment not carried out for other reasons

== ENCOUNTER → 2020-12-17 | Outpatient (REF) | PROVIDERS: ATTEND Internal Medicine | DX: I10 Essential (primary) hypertension (principal); Z20.822 Contact with and (suspected) exposure to COVID-19; Z53.8 Procedure and treatment not carried out for other reasons ==

== ENCOUNTER → 2020-12-24 | Outpatient (REF) ==
[~2020-12-24] MED LIST changes: -DULC10SU2 PR; -MILKSUS3 PO
[2020-12-24 12:33] LABS: HEMATOCRIT 37.3 % (36.0-47.0); HEMOGLOBIN 12.3 g/dl (12.0-15.5); MEAN CORPUSCULAR HEMOGLOBIN 30.2 pg (27.0-33.0); MEAN CORPUSCULAR VOLUME 91.6 fl (80.0-96.0); PLATELET COUNT, AUTOMATED 282 10^3/uL (150-450); RED BLOOD COUNT 4.07 10^6/uL (4.00-5.40); WHITE BLOOD COUNT 4.7 10^3/uL (4.0-10.0)
[2020-12-24 12:58] LABS: CALCIUM LEVEL 9.1 MG/DL (8.8-10.2); CREATININE FOR GFR 1.08 MG/DL (0.55-1.30); GLOMERULAR FILTRATION RATE 51.5 (>32); POTASSIUM SERUM 4.9 MEQ/L (3.5-5.1)
== END ==
PROVIDERS: ATTEND Internal Medicine
DX: I10 Essential (primary) hypertension (principal)

== ENCOUNTER → 2021-01-06 | Outpatient (REF) | payer MEDICARE, MEDICAID, SELFPAY | PROVIDERS: ATTEND Internal Medicine | DX: I10 Essential (primary) hypertension (principal) ==

== ENCOUNTER → 2021-01-27 | Outpatient (REF) | payer MEDICARE, MEDICAID | PROVIDERS: ATTEND Internal Medicine | DX: Z53.8 Procedure and treatment not carried out for other reasons (principal) ==

== ENCOUNTER → 2021-01-27 | Outpatient (REF) | payer MEDICARE, MEDICAID ==
[~2021-01-27] MED LIST changes: +DULC10SU2 PR; +LOSA100T45 PO; -LOSA100T50 PO; +MILKSUS3 PO
[2021-01-27 09:51] LABS: HEMATOCRIT 38.5 % (36.0-47.0); HEMOGLOBIN 12.4 g/dl (12.0-15.5); MEAN CORPUSCULAR HEMOGLOBIN 29.5 pg (27.0-33.0); MEAN CORPUSCULAR HGB CONC 32.2 g/dl (32.0-36.5); MEAN CORPUSCULAR VOLUME 91.7 fl (80.0-96.0); PLATELET COUNT, AUTOMATED 316 10^3/uL (150-450); WHITE BLOOD COUNT 6.6 10^3/uL (4.0-10.0)
[2021-01-27 10:11] LABS: CALCIUM LEVEL 8.8 MG/DL (8.8-10.2); CREATININE FOR GFR 1.09 MG/DL (0.55-1.30); GLOMERULAR FILTRATION RATE 50.9 (>32); POTASSIUM SERUM 4.3 MEQ/L (3.5-5.1)
[2021-01-27 17:36] LABS: APPEARANCE, URINE CLEAR (CLEAR); BACTERIA, URINE AUTO 1+ (NEGATIVE); BILIRUBIN, URINE AUTO NEGATIVE (NEGATIVE); BLOOD, URINE BLOOD NEGATIVE (NEGATIVE); COLOR, URINE STRAW (YELLOW); GLUCOSE, URINE (UA) AUTO NEGATIVE (NEGATIVE); KETONE, URINE AUTO NEGATIVE (NEGATIVE); LEUKOCYTE ESTERASE, URINE AUTO NEGATIVE (NEGATIVE); MUCUS, URINE SMALL (NEGATIVE); NITRITE, URINE AUTO NEGATIVE (NEGATIVE); PROTEIN, URINE AUTO NEGATIVE (NEGATIVE); RBC, URINE AUTO 0 /HPF (0-3); SPECIFIC GRAVITY URINE AUTO 1.005 (1.002-1.035); SQUAMOUS EPITHELIAL CELL UR AU 1 /HPF (0-6); UROBILINOGEN, URINE AUTO 0.2 mg/dL (0.0-2.0); WBC, URINE AUTO 0 /HPF (0-3)
[2021-01-29 09:20] LABS: PTH INTACT 70.8 PG/ML (18.5-88.0)
== END ==
PROVIDERS: ATTEND Physician Assistant
DX: I10 Essential (primary) hypertension (principal)

== ENCOUNTER 2021-02-10 17:14 | Inpatient (IN) | payer MEDICARE, MEDICAID ==
[~2021-02-10] VITALS: Ht 157.5 cm; Wt 71.5 kg
[~2021-02-10 17:14] MED LIST changes: -DULC10SU2 PR; -LOSA100T45 PO; +LOSA100T50 PO; -MILKSUS3 PO
--- NOTE | 2021-02-10 17:36 | REPVR ---
PROCEDURE INFORMATION: Exam: CT Head Without Contrast Exam date and time: 02/10/2021 5:19 PM Age: 85 years old Clinical indication: Coma or unconsciousness; Additional info: R/O CVA TECHNIQUE: Imaging protocol: Computed tomography of the head without contrast. Radiation optimization: All CT scans at this facility use at least one of these dose optimization techniques: automated exposure control; mA and/or kV adjustment per patient size (includes targeted exams where dose is matched to clinical indication); or iterative reconstruction. Other technique: STROKE PROTOCOL was implemented. COMPARISON: CT Head without contrast 06/04/2020 11:29 AM FINDINGS: Brain: Mild hypoattenuating foci are noted in the anterior lateral ventricular periventricular white matter bilaterally. No intracranial hemorrhage. No mass or acute cortical infarction identified. Cerebral ventricles: Prominence of the subarachnoid spaces is consistent with the patient's age of 85 years. Disproportionate enlargement of the lateral ventricles is present with an Winter ratio of 44.0%, stable. The anterior third ventricular transverse dimension is 16.3 mm, stable. The fourth ventricle is normal in size. Paranasal sinuses: Visualized sinuses are unremarkable. No fluid levels. Mastoid air cells: Visualized mastoid air cells are well aerated. Vasculature: Atherosclerotic calcifications are present involving the carotid artery siphons bilaterally. Bones/joints: No acute abnormality. No acute fracture. Soft tissues: Unremarkable. IMPRESSION: 1. Disproportionate prominence of the lateral and third ventricles, stable. Recommend clinical exclusion of symptoms of normal pressure hydrocephalus. Otherwise, age appropriate supratentorial and infratentorial atrophy. 2. Mild chronic white matter microvascular ischemic disease. 3. No acute intracranial abnormality identified. ASSESSMENT: ASPECTS ([place] Stroke Program Early CT Score) is 10. Electronically signed by: Dorian Cooley On 02/10/2021 17:35:24 PM
--- NOTE | 2021-02-10 18:10 | REP ---
INDICATION: CVA. COMPARISON: 12/03/2020 PA and lateral exam TECHNIQUE: Portable FINDINGS: The technique utilized in obtaining the radiograph has magnified the cardiac silhouette and accentuated the interstitial markings. Cardiomediastinal silhouette lung minor are unchanged. No acute patchy parenchymal opacities or pleural effusions have developed. There is no change in the osseous structures. IMPRESSION: Stable chest <Electronically signed by Solis Holliday > 02/10/21 [id number]
[2021-02-10 18:11] LABS: BASO # 0.1 10^3/uL (0.0-0.2); BASO % 0.9 % (0.0-1.0); EOS # 0.2 10^3/uL (0.0-0.5); EOS % 2.6 % (0.0-3.0); HEMATOCRIT 39.2 % (36.0-47.0); HEMOGLOBIN 12.9 g/dl (12.0-15.5); LYMPH # 1.9 10^3/uL (1.5-5.0); LYMPH % 31.7 % (24.0-44.0); MEAN CORPUSCULAR HEMOGLOBIN 30.2 pg (27.0-33.0); MEAN CORPUSCULAR HGB CONC 32.9 g/dl (32.0-36.5); MEAN CORPUSCULAR VOLUME 91.8 fl (80.0-96.0); MONO # 0.6 10^3/uL (0.0-0.8); NEUTROPHILS # 3.1 10^3/uL (1.5-8.5); NEUTROPHILS % 53.5 % (36.0-66.0); PLATELET COUNT, AUTOMATED 311 10^3/uL (150-450); RED BLOOD COUNT 4.27 10^6/uL (4.00-5.40); WHITE BLOOD COUNT 5.8 10^3/uL (4.0-10.0)
[2021-02-10] MEDS ORDERED: ISOVUE-370 76% 100ML VIAL As Ordered ONE (18:12)
[2021-02-10 18:22] LABS: INR 0.92; PROTHROMBIN TIME 12.5 SECONDS (12.5-14.3)
[2021-02-10 18:24] LABS: PARTIAL THROMBOPLASTIN TIME 23.7 SECONDS (24.2-38.5)
[2021-02-10 18:44] LABS: BLOOD UREA NITROGEN 21 MG/DL (7-18); CALCIUM LEVEL 9.6 MG/DL (8.8-10.2); CARBON DIOXIDE LEVEL 29 MEQ/L (21-32); CHLORIDE LEVEL 99 MEQ/L (98-107); CK-MB VALUE MASS 1.2 NG/ML (<3.6); CPK CREATINE PHOSPHOKINASE 152 U/L (26-192); CREATININE FOR GFR 1.35 MG/DL (0.55-1.30); GLOMERULAR FILTRATION RATE 39.8 (>32); GLUCOSE, FASTING 71 MG/DL (70-100); MB/CK RELATIVE INDEX 0.79 (< OR =4); POTASSIUM SERUM 4.2 MEQ/L (3.5-5.1); SODIUM LEVEL 135 MEQ/L (136-145); TROPONIN I < 0.02 NG/ML (< 0.10)
[2021-02-10] MEDS ORDERED: LIDOCAINE 2% 5ML JELLY UROJET TOP ONE (18:45)
--- NOTE | 2021-02-10 18:50 | REPVR ---
PROCEDURE INFORMATION: Exam: CT Angiography Neck With Contrast Exam date and time: 02/10/2021 5:54 PM Age: 85 years old Clinical indication: Other: CVA - nursing interventions must not delay CT TECHNIQUE: Imaging protocol: Computed tomography angiography of the neck with contrast. 3D rendering (Not supervised by radiologist): MIP and/or 3D reconstructed images were created by the technologist. Radiation optimization: All CT scans at this facility use at least one of these dose optimization techniques: automated exposure control; mA and/or kV adjustment per patient size (includes targeted exams where dose is matched to clinical indication); or iterative reconstruction. Contrast material: ISOVUE 370; Contrast volume: 75 ml; Contrast route: INTRAVENOUS (IV); COMPARISON: Thyroid, ST head+neck US 04/03/2014 10:36 AM FINDINGS: Right common carotid artery: Mild stenosis of the proximal right common carotid artery. Right internal carotid artery: Mild atherosclerosis of the proximal right internal carotid artery, without stenosis using NASCET criteria. Increased tortuosity of the vessel. Right external carotid artery: Mild atherosclerosis of the proximal right external carotid artery, without significant stenosis or occlusion. Left common carotid artery: No significant stenosis. No dissection or occlusion. Left internal carotid artery: Atherosclerosis of the proximal left internal carotid artery, with less than 50% stenosis. Mild ectasia of the distal left internal carotid artery measuring 6 mm in diameter. Increased tortuosity of the left internal carotid artery. Left external carotid artery: No occlusion or significant stenosis. Right vertebral artery: No significant stenosis. No dissection or occlusion. Left vertebral artery: No significant stenosis. No dissection or occlusion. Right subclavian artery: Xghh-tm-uowirkqh stenosis of the right subclavian artery. Left subclavian artery: Venous enhancement and artifact limit evaluation of the left subclavian artery. Oropharynx: Calcifications within the bilateral palatine tonsils. Thyroid: Within the left thyroid lobe, there is a complex nodule measuring 2.3 cm. Soft tissues: No significant soft tissue swelling. Bones/joints: Straightening of the lordotic curvature of the cervical spine. Degenerative changes visualized at multiple cervical and upper thoracic levels. Lungs: Patchy increased interstitial markings in ground-glass density within the lungs, right side greater than left. Atypical infection cannot be excluded. Other findings: Paraglottic foci of gas are visualized, suggestive of the laryngoceles. IMPRESSION: 1. Mild stenosis of the proximal right common carotid artery. 2. Atherosclerosis of the proximal left internal carotid artery, with less than 50% stenosis. Mild ectasia of the distal left internal carotid artery. 3. Increased tortuosity of the bilateral internal carotid arteries. 4. Izyg-me-rerynbda stenosis of the right subclavian artery. 5. Patchy increased interstitial markings in ground-glass density within the lungs, right side greater than left. Atypical infection cannot be excluded. Clinical correlation recommended. 6. Within the left thyroid lobe, there is a complex nodule measuring 2.3 cm. Follow-up ultrasonography recommended. 7. Additional findings described above. COMMENTS: Consistent with the [employer]'s Incidental Findings Committee white paper (J Am Scooter Radiol 2015): In patients aged 35 years and older with an incidental thyroid nodule equal to or greater than 1.[address], MRI or extrathyroidal US, further evaluation with dedicated thyroid US is recommended for patients with normal life expectancy and without comorbidities. For smaller nodules without suspicious features, no further evaluation or follow up is recommended. REFERENCES: NASCET CRITERIA. The degree of internal carotid artery stenosis is based on NASCET criteria. Normal is no stenosis. Mild is less than 50% stenosis. Moderate is 50-69% stenosis. Severe is 70% to 99% stenosis. Total occlusion is no detectable patent lumen. Electronically signed by: Rhett Kenney On 02/10/2021 18:49:08 PM
--- NOTE | 2021-02-10 19:02 | REPVR ---
PROCEDURE INFORMATION: Exam: CT Angiography Head With Contrast, Arteriography Exam date and time: 02/10/2021 5:54 PM Age: 85 years old Clinical indication: Other: CVA - nursing interventions must not delay CT TECHNIQUE: Imaging protocol: Computed tomography angiography of the head with contrast. Exam focused on the arteries. 3D rendering (Not supervised by radiologist): MIP and/or 3D reconstructed images were created by the technologist. Radiation optimization: All CT scans at this facility use at least one of these dose optimization techniques: automated exposure control; mA and/or kV adjustment per patient size (includes targeted exams where dose is matched to clinical indication); or iterative reconstruction. Contrast material: ISOVUE 370; Contrast volume: 75 ml; Contrast route: INTRAVENOUS (IV); COMPARISON: CT Head without contrast 02/10/2021 5:21 PM FINDINGS: ANTERIOR CIRCULATION: Right internal carotid artery: Mild atherosclerosis of the right internal carotid artery, without significant stenosis or occlusion. No aneurysm. Right middle cerebral artery: No occlusion or significant stenosis. No aneurysm. Right anterior cerebral artery: No occlusion or significant stenosis. No aneurysm. Left internal carotid artery: Mild atherosclerosis of the left internal carotid artery, without significant stenosis or occlusion. No aneurysm. Left middle cerebral artery: No occlusion or significant stenosis. No aneurysm. Left anterior cerebral artery: No occlusion or significant stenosis. No aneurysm. POSTERIOR CIRCULATION: Right vertebral artery: Hypoplasia of the distal right vertebral artery, without occlusion. Left vertebral artery: No occlusion or significant stenosis. No aneurysm. Basilar artery: No occlusion or significant stenosis. No aneurysm. Increased tortuosity of the basilar artery. Right posterior cerebral artery: Hypoplasia of the P1 segment of the right posterior cerebral artery. 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 No aneurysm. Left posterior cerebral artery: Persistence of the origin of the left posterior cerebral artery, without significant stenosis or occlusion. No aneurysm. Veins: Suboptimal evaluation of the dural venous sinuses due to poor venous enhancement. Brain: No definite mass, mass effect, or midline shift. Refer to the head CT report from the same day. Cerebral ventricles: Mild ventriculomegaly. Bones/joints: No acute fracture. Soft tissues: Unremarkable. IMPRESSION: 1. No large vessel arterial occlusion on this CTA head. 2. Additional findings described above. Electronically signed by: Rhett Kenney On 02/10/2021 19:01:29 PM
[2021-02-10 19:52] LABS: RSV AMPLIFICATION NEGATIVE (NEGATIVE)
[2021-02-10] MEDS ORDERED: MAALOX 30 ML SUSP *UDC PO PRN (20:15)
[2021-02-10] MEDS ORDERED: ACETAMINOPHEN TAB 650MG DOSE (2X325MG) PO PRN (20:15)
[2021-02-10] MEDS ORDERED: GLUCAGON INJ 1MG VIAL SC PRN (20:15)
[2021-02-10] MEDS ORDERED: GLUCOSE 4GM CHEW TABLET PO PRN (20:15)
[2021-02-10] MEDS ORDERED: MOM 30ML SUSPENSION UDC PO PRN (20:15)
--- NOTE | 2021-02-10 20:38 | HPEPDOC ---
[facility] Medical History & Physical Date of Admission Feb 10, 2021 Date of Service: Feb 10, 2021 Attending Physician: DEBI COSTELLO MD History and Physical CHIEF COMPLAINT: [85 y/o female presents from [facility] with weakness, facial droop, ams] HISTORY OF PRESENT ILLNESS: [This is an 85 y/o female with a pmh of dementia, hld, htn, chf, renal cell carcinoma s/p nephrectomy, ckd3, dm2, hep c who presents to the ED after staff at detention ([facility]) noticed her to have acute ams, weakness and facial droop. At time of my exam, patient is somnolent and not easily arousable. Hx is taken from ED staff and suffgxge-yg-ypn, Avila, who is at bedside. Patient was able to be aroused once during my exam after provocation from daughter in law and mumbles a few words. Daughter in law states that she saw patient around 2pm today 02/10 and noted her to be weak and confused. States that patient had to be helped into bed after a walk which is unusual for her and that she seemed very confused and complained of people breaking into her home and other nonsensible complaints. Daughter in law at this time does not think she noticed any slurred speech or facial droop.] PAST MEDICAL HISTORY: 1. [See HPI PAST SURGICAL HISTORY: 1. [ x2]. 2. [Tubal ligation]. 3. [Right partial nephrectomy 4. Breast lumpectomy]. SOCIAL HISTORY: Patient is resident at [facility], unable to obtain rest d/t mentation FAMILY HISTORY: Unable to obtain d/t mentation ALLERGIES: Please see below. REVIEW OF SYSTEMS: Unable to obtain d/t mentation HOME MEDICATIONS: Please see below. PHYSICAL EXAMINATION: VITAL SIGNS: Please see below. GENERAL APPEARANCE: [This is an 85 y/o female who is somnolent in bed. She does not appear to be in any respiratory distress.]. HEENT: [No mass or lesion. Patient opens her eyes after several attempts. Nares patent. Patient appears to smile using left side of her face only at one time.]. CARDIOVASCULAR: [Regular rate, rhythm. No murmurs, rubs, gallops]. LUNGS: [Good air flow b/l. No wheezing, rales, rhonchi.]. ABDOMEN: [Soft, non distended]. MUSCULOSKELETAL: [No joint deformity]. EXTREMITIES: [Trace edema to b/l lower extremities. No overlying skin changes. Pulses intact.]. NEUROLOGICAL: [Patient is somnolent.]. PSYCHIATRIC: [Patient is somnolent.]. LABORATORY DATA: See below. IMAGING: [CXR: FINDINGS: The technique utilized in obtaining the radiograph has magnified the cardiac silhouette and accentuated the interstitial markings. Cardiomediastinal silhouette lung minor are unchanged. No acute patchy parenchymal opacities or pleural effusions have developed. There is no change in the osseous structures. IMPRESSION: Stable chest Head CT: FINDINGS: Brain: Mild hypoattenuating foci are noted in the anterior lateral ventricular periventricular white matter bilaterally. No intracranial hemorrhage. No mass or acute cortical infarction identified. Cerebral ventricles: Prominence of the subarachnoid spaces is consistent with the patient's age of 85 years. Disproportionate enlargement of the lateral ventricles is present with an Winter ratio of 44.0%, stable. The anterior third ventricular transverse dimension is 16.3 mm, stable. The fourth ventricle is normal in size. Paranasal sinuses: Visualized sinuses are unremarkable. No fluid levels. Mastoid air cells: Visualized mastoid air cells are well aerated. Vasculature: Atherosclerotic calcifications are present involving the carotid artery siphons bilaterally. Bones/joints: No acute abnormality. No acute fracture. Soft tissues: Unremarkable. IMPRESSION: 1. Disproportionate prominence of the lateral and third ventricles, stable. Recommend clinical exclusion of symptoms of normal pressure hydrocephalus. Otherwise, age appropriate supratentorial and infratentorial atrophy. 2. Mild chronic white matter microvascular ischemic disease. 3. No acute intracranial abnormality identified. ASSESSMENT: ASPECTS ([place] Stroke Program Early CT Score) is 10. CTA Head: FINDINGS: ANTERIOR CIRCULATION: Right internal carotid artery: Mild atherosclerosis of the right internal carotid artery, without significant stenosis or occlusion. No aneurysm. Right middle cerebral artery: No occlusion or significant stenosis. No aneurysm. Right anterior cerebral artery: No occlusion or significant stenosis. No aneurysm. Left internal carotid artery: Mild atherosclerosis of the left internal carotid artery, without significant stenosis or occlusion. No aneurysm. Left middle cerebral artery: No occlusion or significant stenosis. No aneurysm. Left anterior cerebral artery: No occlusion or significant stenosis. No aneurysm. POSTERIOR CIRCULATION: Right vertebral artery: Hypoplasia of the distal right vertebral artery, without occlusion. Left vertebral artery: No occlusion or significant stenosis. No aneurysm. Basilar artery: No occlusion or significant stenosis. No aneurysm. Increased tortuosity of the basilar artery. Right posterior cerebral artery: Hypoplasia of the P1 segment of the right posterior cerebral artery. No significant stenosis or occlusion of the remaining right ISO COORDINATOR. No aneurysm. Left posterior cerebral artery: Persistence of the origin of the left posterior cerebral artery, without significant stenosis or occlusion. No aneurysm. Veins: Suboptimal evaluation of the dural venous sinuses due to poor venous enhancement. Brain: No definite mass, mass effect, or midline shift. Refer to the head CT report from the same day. Cerebral ventricles: Mild ventriculomegaly. Bones/joints: No acute fracture. Soft tissues: Unremarkable. IMPRESSION: 1. No large vessel arterial occlusion on this CTA head. 2. Additional findings described above. Neck CTA: FINDINGS: Right common carotid artery: Mild stenosis of the proximal right common carotid artery. Right internal carotid artery: Mild atherosclerosis of the proximal right internal carotid artery, without stenosis using NASCET criteria. Increased tortuosity of the vessel. Right external carotid artery: Mild atherosclerosis of the proximal right external carotid artery, without significant stenosis or occlusion. Left common carotid artery: No significant stenosis. No dissection or occlusion. Left internal carotid artery: Atherosclerosis of the proximal left internal carotid artery, with less than 50% stenosis. Mild ectasia of the distal left internal carotid artery measuring 6 mm in diameter. Increased tortuosity of the left internal carotid artery. Left external carotid artery: No occlusion or significant stenosis. Right vertebral artery: No significant stenosis. No dissection or occlusion. Left vertebral artery: No significant stenosis. No dissection or occlusion. Right subclavian artery: Xyid-jd-uhyxbgwf stenosis of the right subclavian artery. Left subclavian artery: Venous enhancement and artifact limit evaluation of the left subclavian artery. Oropharynx: Calcifications within the bilateral palatine tonsils. Thyroid: Within the left thyroid lobe, there is a complex nodule measuring 2.3 cm. Soft tissues: No significant soft tissue swelling. Bones/joints: Straightening of the lordotic curvature of the cervical spine. Degenerative changes visualized at multiple cervical and upper thoracic levels. Lungs: Patchy increased interstitial markings in ground-glass density within the lungs, right side greater than left. Atypical infection cannot be excluded. Other findings: Paraglottic foci of gas are visualized, suggestive of the laryngoceles. IMPRESSION: 1. Mild stenosis of the proximal right common carotid artery. 2. Atherosclerosis of the proximal left internal carotid artery, with less than 50% stenosis. Mild ectasia of the distal left internal carotid artery. 3. Increased tortuosity of the bilateral internal carotid arteries. 4. Tvyi-lw-asvutmcu stenosis of the right subclavian artery. 5. Patchy increased interstitial markings in ground-glass density within the lungs, right side greater than left. Atypical infection cannot be excluded. Clinical correlation recommended. 6. Within the left thyroid lobe, there is a complex nodule measuring 2.3 cm. Follow-up ultrasonography recommended. 7. Additional findings described above. ] MICROBIOLOGY: Please see below. ASSESSMENT: [This is an 85 y/o female with a pmh of dementia, hld, htn, chf, renal cell carcinoma s/p nephrectomy, ckd3, dm2, hep c who presents to the ED after staff at [facility] ([facility]) noticed her to have acute ams, weakness and facial droop. At time of my exam, patient is somnolent and not easily arousable.]. . PLAN: 1. [AMS - potentially ischemic CVA. Last normal was approx 1400, unfortunately not brought to emergency department until almost 2000 placing her outside the window for TPA. Other ddx include metabolic encephalopathy, hypoglycemia, tia - Imaging unremarkable so far. MRI/MRA ordered - ECHO ordered - check a1c, lipid panel - tele overnight - NPO for now d/t mentation, can continue oral meds once patient is more alert - will give ivf overnight d/t mentation - Discussed with family who state patient has DNR/DNI CODE STATUS 2. DM2 - patient on basal insulin at home, i am holding this until she is eating - sliding scale - hypoglycemic protocol 3. CHF - patient does not appear to be in acute exacerbation. perhaps mildly volume overloaded. - can consider iv lasix if patient does not become alert enough to take her po diuretic 4. HLD - meds being held 5. HTN - meds being held. bp in ed has been stable 6. CKD3 - cr is slightly bumped to 1.3 from baseline of 1.1 - does not meet criteria for luis manuel - fluids being given for npo status may correct nonetheless DVT prophylaxis - lovenox]. Vital Signs Vital Signs Date Time Temp Pulse Resp B/P (MAP) Pulse Ox O2 Delivery O2 Flow Rate FiO2 7/12/21 20:34 57 95 02/10/21 20:30 20 122/62 (82) Room Air 02/10/21 19:15 97.9 Laboratory Data Labs 24H Laboratory Tests 2 02/10/21 17:48: Immature Granulocyte % (Auto) 0.3, Neutrophils (%) (Auto) 53.5, Lymphocytes (%) (Auto) 31.7, Monocytes (%) (Auto) 11.0H, Eosinophils (%) (Auto) 2.6, Basophils (%) (Auto) 0.9, Neutrophils # (Auto) 3.1, Lymphocytes # (Auto) 1.9, Monocytes # (Auto) 0.6, Eosinophils # (Auto) 0.2, Basophils # (Auto) 0.1, Nucleated Red Blood Cells % (auto) 0.0 02/10/21 17:54: Prothrombin Time 12.5, Prothromb Time International Ratio 0.92, Activated Partial Thromboplast Time 23.7L, Anion Gap 7L, Glomerular Filtration Rate 39.8, Calcium Level 9.6, Total Creatine Kinase 152, Creatine Kinase MB 1.2, Creatine Kinase MB Relative Index 0.79, Troponin I < 0.02 02/10/21 18:03: POC Glucose (Misc Panel) 75, POC Sodium (Misc Panel) 136, POC Potassium (Misc Panel) 4.0, POC Chloride (Misc Panel) 95L, POC Total CO2 (Misc Panel) 26.0, POC Blood Urea Nitrogen (Misc Panel 21, POC Ionized Calcium (Misc Panel) 5.0, POC Creatinine (Misc Panel) 1.4H, POC Hematocrit (Misc Panel) 40.0 02/10/21 19:01: Urine Color YELLOW, Urine Appearance CLEAR, Urine pH 7.0, Urine Specific [place] 1.016, Urine Protein NEGATIVE, Urine Glucose (UA) NEGATIVE, Urine Ketones NEGATIVE, Urine Blood NEGATIVE, Urine Nitrite NEGATIVE, Urine Bilirubin NEGATIVE, Urine Urobilinogen 2.0H, Urine Leukocyte Esterase NEGATIVE, Urine WBC (Auto) 0, Urine RBC (Auto) 1, Urine Hyaline Casts (Auto) 0, Urine Bacteria (Auto) NEGATIVE, Urine Squamous Epithelial Cells 0, Urine Sperm (Auto) , Coronavirus (COVID-19)(PCR) NEGATIVE, Influenza Type A (RT-PCR) NEGATIVE, Influenza Type B (RT-PCR) NEGATIVE, Respiratory Syncytial Virus (PCR) NEGATIVE CBC/BMP Laboratory Tests 02/10/21 17:48 02/10/21 17:54 Home Medications Scheduled Amlodipine Besylate (Norvasc) 5 Mg Tablet, 5 MG PO DAILY Aspirin (Aspirin EC) 81 Mg Tablet.dr, 81 MG PO QHS Brinzolamide/Brimonidine Tart (Simbrinza 1%-0.2% Eye Drops) 8 Ml Drops.susp, 1 DROP OU QHS Cholecalciferol (Vitamin D3) (Vitamin D3) 1,000 Unit Tablet, 1,000 UNITS PO DAILY Citalopram Hydrobromide (Citalopram HBr) 20 Mg Tablet, 30 MG PO DAILY Famotidine (Famotidine) 20 Mg Tablet, 20 MG PO DAILY Furosemide (Furosemide) 20 Mg Tablet, 20 MG PO DAILY Insulin Glargine,Hum.rec.anlog (Basaglar Kwikpen U-100) 100 Unit/1 Ml Insuln.pen, 10 UNIT SC DAILY HOLD IF BGL<100 Insulin Glargine,Hum.rec.anlog (Basaglar Kwikpen U-100) 100 Unit/1 Ml Insuln.pen, 15 UNIT SC QPM TAKES AT DINNERTIME, HOLD IF BGL<100 Latanoprost (Xalatan) 0.005% 2.5ML Drops, 1 DROP OU QHS Losartan Potassium (Losartan Potassium) 100 Mg Tablet, 100 MG PO QHS Metformin HCl (Metformin HCl) 500 Mg Tablet, 500 MG PO BID Simvastatin (Simvastatin) 20 Mg Tablet, 20 MG PO QHS Scheduled PRN Bisacodyl (Dulcolax) 10 Mg Supp.rect, 10 MG WA DAILY PRN for CONSTIPATION Magnesium Hydroxide (Milk of Magnesia) 400 Mg/5 Ml Oral.susp, 30 ML PO DAILY PRN for CONSTIPATION Melatonin (Melatonin) 3 Mg Tablet, 3 MG PO QHS PRN for INSOMNIA Propylene Glycol/Peg 400/Pf (Systane 0.3-0.4% Eye Drop) 1 Each Droperette, 1 DROP OU QID PRN for DRY EYES Allergies Coded Allergies: Sulfa (Sulfonamide Antibiotics) (Verified Allergy, Intermediate, hives, 12/14/18) Quinolones (Verified Adverse Reaction, Intermediate, psychosis, 12/14/18) hydromorphone (Verified Adverse Reaction, Intermediate, psychosis, 12/14/18) A-FIB/CHADSVASC A-FIB History Current/History of A-Fib/PAF?: No Attending Note Attending Note Time of service 11:35 PM Ms. 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 The patient's physical exam was remarkable for lethargy. She was not opening her eyes or following commands. her EKG showed a rate of 60 w LAFB Plan: telemetry & f/u repeat EKG / c/w dextrose drip / the daytime team may consider consulting neurology if her symptoms don't resolve KIM MIMS Feb 10, 2021 20:38 DEBI COSTELLO MD Feb 11, 2021 04:42
[2021-02-10] MEDS ORDERED: MILKSUS3 PO (20:51)
[2021-02-10] MEDS ORDERED: DULC10SU2 PR (20:51)
[2021-02-10] MEDS ORDERED: D5W/0.9% SODIUM CHLORIDE 1,000 ML IV SCH (20:55)
[2021-02-10] MEDS ORDERED: HumaLOG INSULIN (NovoLOG) PER UNIT SC SCH (21:00)
[2021-02-10 21:01] LABS: CHOLESTEROL LEVEL 157 MG/DL (<200); CHOLESTEROL RISK RATIO 2.706 (<5); HDL CHOLESTEROL 58 MG/DL (>40); LDL CHOLESTEROL 79 MG/DL (<100); NON-HDL-C 99 MG/DL; TRIGLYCERIDES LEVEL 99 MG/DL (<150)
--- NOTE | 2021-02-10 21:43 | ECGEPIP ---
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
--- NOTE | 2021-02-10 21:58 | REPVR ---
PROCEDURE INFORMATION: Exam: MR Head Without Contrast Exam date and time: 02/10/2021 8:15 PM Age: 85 years old Clinical indication: Altered mental status/memory loss; Confusion or disorientation; Additional info: Likely CVA TECHNIQUE: Imaging protocol: MR of the head without contrast. COMPARISON: CT Head without contrast 02/10/2021 5:21 PM FINDINGS: Limitations: Motion artifact limits this study. Brain: No restricted diffusion within the brain to suggest an acute infarct. There are scattered foci of FLAIR hyperintensity within the cerebral white matter. There is no mass effect or restricted diffusion associated with these foci. In a patient this age, this likely represents chronic small vessel ischemic disease. Magnetic susceptibility mineralization or hemosiderin within the bilateral basal ganglia. Motion artifact limits the axial T2 gradient echo sequence. No cerebral edema. Cerebral ventricles: There is moderate prominence of the ventricles and sulci, compatible with atrophy. T2 hyperintense choroid plexus cysts are seen bilaterally. Bones/joints: Unremarkable, as visualized. Paranasal sinuses: Minimal mucosal thickening of scattered ethmoid air cells. Mastoid air cells: No mastoid effusion. Orbital cavity: Bilateral orbital lens implants. Soft tissues: Unremarkable, as visualized. IMPRESSION: 1. No acute infarct. 2. Mild white matter disease, likely representing chronic small vessel ischemic disease. 3. Moderate atrophy. 4. Additional findings described above. Electronically signed by: Rhett Kenney On 02/10/2021 21:58:29 PM
--- NOTE | 2021-02-10 22:08 | REPVR ---
PROCEDURE INFORMATION: Exam: MRA Head Without Contrast; Arteriography Exam date and time: 02/10/2021 8:15 PM Age: 85 years old Clinical indication: Drowsiness or somnolence; Additional info: Likely CVA TECHNIQUE: Imaging protocol: Magnetic resonance angiography head without contrast. Exam focused on the arteries. COMPARISON: CT ANGIO HEAD 02/10/2021 6:16 PM FINDINGS: ANTERIOR CIRCULATION: Right internal carotid artery: Intracranial segment is patent with no significant stenosis. No aneurysm. Right middle cerebral artery: Suboptimal evaluation of the bilateral middle cerebral arteries due to artifact. There is no occlusion of these vessels on CTA imaging from the same day. Right anterior cerebral artery: Suboptimal evaluation of the A2 segments of the bilateral anterior cerebral arteries due to artifact. The remaining anterior cerebral arteries are patent, as visualized. Left internal carotid artery: Intracranial segment is patent with no significant stenosis. No aneurysm. Left middle cerebral artery: See above. Left anterior cerebral artery: See above. POSTERIOR CIRCULATION: Right vertebral artery: Artifact limits evaluation of the proximal V4 and visualized V3 segments of the bilateral vertebral arteries, without significant stenosis or occlusion on CTA imaging from the same day. Hypoplasia of the distal right vertebral artery, without occlusion. Left vertebral artery: See above. No significant stenosis or occlusion of the distal V4 segment of the left vertebral artery. Basilar artery: Increased tortuosity of the basilar artery. Artifact limits evaluation of the basilar artery, without significant stenosis or occlusion. Right posterior cerebral artery: Hypoplasia of the P1 segment of the right posterior cerebral artery. There is suboptimal evaluation of the remaining right MULE DRIVER due to artifact. Left posterior cerebral artery: Artifact significant limits evaluation of the left MULE DRIVER. Persistence of the origin of the left MULE DRIVER. This vessel is patent on CTA imaging from the same day. IMPRESSION: 1. Limited MRA of the head, as detailed above. 2. Additional findings described above. Electronically signed by: Rhett Kenney On 02/10/2021 22:07:51 PM
[2021-02-10 22:44] LABS: ALBUMIN 3.6 GM/DL (3.2-5.2); ALT/SGPT 21 U/L (12-78); BILIRUBIN,DIRECT < 0.1 MG/DL (0.0-0.2); BILIRUBIN,TOTAL 0.3 MG/DL (0.2-1.0); TOTAL PROTEIN 6.9 GM/DL (6.4-8.2)
[2021-02-10 23:27] VITALS: BP 148/69
[2021-02-11] MEDS: DEXTROSE 50% 50 ML SYRINGE IV PRN ×3 (00:15→13:52)
[2021-02-11] MEDS ORDERED: D10W/0.45% SODIUM CHLORIDE 1,000 ML IV SCH (03:35)
[2021-02-11] MEDS ORDERED: DEXTROSE 50% 50 ML SYRINGE IV STA ×2 (05:08→17:14)
[2021-02-11 06:00] VITALS: BP 121/68
[2021-02-11] MEDS: HumaLOG INSULIN (NovoLOG) PER UNIT SC SCH ×2 (06:00)
[2021-02-11 06:30] LABS: MAGNESIUM LEVEL 2.5 MG/DL (1.8-2.4)
[2021-02-11 07:18] LABS: HEMATOCRIT 38.7 % (36.0-47.0); HEMOGLOBIN 12.8 g/dl (12.0-15.5); MEAN CORPUSCULAR HEMOGLOBIN 30.7 pg (27.0-33.0); MEAN CORPUSCULAR HGB CONC 33.1 g/dl (32.0-36.5); MEAN CORPUSCULAR VOLUME 92.8 fl (80.0-96.0); PLATELET COUNT, AUTOMATED 273 10^3/uL (150-450); RED BLOOD COUNT 4.17 10^6/uL (4.00-5.40); WHITE BLOOD COUNT 13.1 10^3/uL (4.0-10.0)
[2021-02-11] MEDS ORDERED: HumaLOG INSULIN (NovoLOG) PER UNIT SC SCH ×7 (07:30→21:00)
[2021-02-11] MEDS ORDERED: amLODIPine 5 MG TAB PO SCH (09:00)
[2021-02-11] MEDS ORDERED: ENOXAPARIN 30MG/0.3ML SYRINGE (J1650 PER 10MG) SC SCH (09:00)
[2021-02-11] MEDS ORDERED: PREVNAR 13 VACCINE SYRINGE IM ONE (09:00)
[2021-02-11 09:29] LABS: CALCIUM LEVEL 8.7 MG/DL (8.8-10.2); CREATININE FOR GFR 1.14 MG/DL (0.55-1.30); GLOMERULAR FILTRATION RATE 48.3 (>32); MAGNESIUM LEVEL 2.2 MG/DL (1.8-2.4); POTASSIUM SERUM 3.1 MEQ/L (3.5-5.1)
[2021-02-11 10:30] LABS: PROLACTIN 5.1 NG/ML
[2021-02-11 10:42] VITALS: BP 179/80
--- NOTE | 2021-02-11 11:10 | REP ---
INDICATION: rul infiltrates seen in CTA neck , AMS/ Pneumonia COMPARISON: 09/19/2012 the latest prior TECHNIQUE: Noncontrast enhanced standard helical technique FINDINGS: The mediastinum and pulmonary flora are unchanged. Incidental mediastinal and hilar calcifications are again noted. There are no pleural or pericardial effusions. There is no significant change in appearance of the imaged upper abdomen. Hepatic cysts are again noted. Dense material is seen in the gallbladder likely secondary to vicarious excretion of intravenous contrast which was administered for the patient is previous CT and 02/10/2021. Left renal contrast excretion is also noted. The osseous structures are within normal limits for the patient's age. Evaluation of the lung minor shows scattered curvilinear, somewhat patchy, and asymmetric densities bilaterally but without evidence of a focal opacities with air bronchograms. This all represents a change compared to the prior exam. Lung minor are hypoexpanded. The aforementioned opacities could obscure a significant nodule. IMPRESSION: 1. Likely chronic fibrotic and/or subsegmental atelectatic changes. There is no definite evidence of a focal pneumonia at this time, however, follow-up is suggested. 2. Other findings as described above. <Electronically signed by Solis Holliday > 02/11/21 [id number]
[2021-02-11 14:00] VITALS: BP 114/68
[2021-02-11] MEDS ORDERED: D10W 1,000 ML IV SCH (14:05)
[2021-02-11 15:00] VITALS: BP 107/58
[2021-02-11] MEDS ORDERED: DEXTROSE 50% 50 ML SYRINGE IV SCH ×2 (15:00→22:00)
--- NOTE | 2021-02-11 15:48 | IPNPDOC ---
Subjective Date Seen The patient was seen on 02/11/21. Subjective Chief Complaint/HPI Patient moved to PCU because of recurrent hypoglycemia and inability to monitor fingersticks every 2 hours that is needed at this point for the patient. In the morning patient was awake alert and had some breakfast however in the later part of the morning she became to drowsy with mumbling speech at that point her sugar was 95 however about 2 hours later she was nonresponsive sugar check was showed 31 so the patient was moved to PCU. Objective Physical Examination General Exam: Positive: Cooperative, No Acute Distress, Other (Confused and mumbling) Eye Exam: Positive: PERRLA, Conjunctiva & lids normal, EOMI; Negative: Sclera icteric ENT Exam: Positive: Atraumatic, Mucous membr. moist/pink, Pharynx Normal Neck Exam: Positive: Supple; Negative: JVD, thyromegaly Chest Exam: Positive: Normal air movement, Other (Bibasilar crackle) Heart Exam: Positive: Rate Normal, Regular Rhythm, Normal S1, Normal S2, Murmurs (Soft systolic murmur at the base of the heart); Negative: Rubs Abdomen Exam: Positive: Normal bowel sounds, Soft; Negative: Tenderness, Hepatospenomegaly Extremity Exam: Negative: Clubbing, Cyanosis, Edema Skin Exam: Positive: Nl turgor and temperature; Negative: Rash, Breakdown Psych Exam: Positive: Other (Poor memory has dementia) Assessment /Plan Assessment This is an 85 y/o female resident of [facility] ,with a pmh of dementia, hld, htn, chf, renal cell carcinoma s/p nephrectomy, ckd3, dm2, hep c who presented to the ED after staff at [facility] ([facility]) noticed her to have acute ams, weakness and facial droop. She was admitted for acute metabolic encephalopathy on the background of dementia. It was initially felt that she had a stroke however MRA, MRI, CT angio of the head are negative for any acute cerebral infarction or hemorrhage. However she was noted to be hypoglycemic Acute metabolic encephalopathy on the background of her dementia Due to hypoglycemia We will start on dextrose 10% and also give 25 mL of 50% dextrose every 6 hours Check fingersticks every 2 hours Stroke ruled out DM2 Now with hypoglycemia Hold on insulins and antidiabetic medications Diastolic CHF patient does not appear to be in acute exacerbation. Will monitor for fluid overload as the patient is on dextrose infusion HLD Continue home statin HTN Home meds are held losartan and amlodipine CKD3 Creatinine at baseline Left thyroid lobe complex nodule Outpatient thyroid ultrasound Patient's daughter in-law does report that after her renal cancer she intermittently has gotten evaluation of chest and thyroid for nodules. LEFT THYROID NODULES FNA 01/12 BENIGN Moderate aortic stenosis and aortic regurgitation Seen in echo of 2014 Continues to get outpatient follow-up Right renal cell cancer Status post nephrectomy in 2010 Plan/VTE VTE Prophylaxis Ordered?: Yes VS, I&O, 24H, Fishbone Vital Signs/I&O Vital Signs Date Time Temp Pulse Resp B/P (MAP) Pulse Ox O2 Delivery O2 Flow Rate FiO2 02/11/21 14:00 97.9 69 16 114/68 (83) 92 02/11/21 06:00 Room Air I&O- Last 24 Hours up to 6 AM 02/11/21 06:00 Intake Total 200 ml Output Total 0 ml Balance 200 ml Laboratory Data 24H LABS Laboratory Tests 2 02/10/21 17:48: Immature Granulocyte % (Auto) 0.3, Neutrophils (%) (Auto) 53.5, Lymphocytes (%) (Auto) 31.7, Monocytes (%) (Auto) 11.0H, Eosinophils (%) (Auto) 2.6, Basophils (%) (Auto) 0.9, Neutrophils # (Auto) 3.1, Lymphocytes # (Auto) 1.9, Monocytes # (Auto) 0.6, Eosinophils # (Auto) 0.2, Basophils # (Auto) 0.1, Nucleated Red Blood Cells % (auto) 0.0, Estimated Mean Plasma Glucose 154H, Hemoglobin A1c 7.0 02/10/21 17:54: Prothrombin Time 12.5, Prothromb Time International Ratio 0.92, Activated Partial Thromboplast Time 23.7L, Anion Gap 7L, Glomerular Filtration Rate 39.8, Calcium Level 9.6, Magnesium Level 2.5H, Total Bilirubin 0.3, Direct Bilirubin < 0.1, Aspartate Amino Transf (AST/SGOT) 18, Alanine Aminotransferase (ALT/SGPT) 21, Alkaline Phosphatase 49, Total Creatine Kinase 152, Creatine Kinase MB 1.2, Creatine Kinase MB Relative Index 0.79, Troponin I < 0.02, Total Protein 6.9, Albumin 3.6, Albumin/Globulin Ratio 1.1L, Triglycerides Level 99, Total Cholesterol 157, LDL Cholesterol 79, Non-HDL Cholesterol (LDL + VLDL) 99, Total HDL Cholesterol 58, Cholesterol/HDL Ratio 2.706 02/10/21 18:03: POC Glucose (Misc Panel) 75, POC Sodium (Misc Panel) 136, POC Potassium (Misc Panel) 4.0, POC Chloride (Misc Panel) 95L, POC Total CO2 (Misc Panel) 26.0, POC Blood Urea Nitrogen (Misc Panel 21, POC Ionized Calcium (Misc Panel) 5.0, POC Creatinine (Misc Panel) 1.4H, POC Hematocrit (Misc Panel) 40.0 02/10/21 19:01: Urine Color YELLOW, Urine Appearance CLEAR, Urine pH 7.0, Urine Specific [place] 1.016, Urine Protein NEGATIVE, Urine Glucose (UA) NEGATIVE, Urine Ketones NEGATIVE, Urine Blood NEGATIVE, Urine Nitrite NEGATIVE, Urine Bilirubin NEGATIVE, Urine Urobilinogen 2.0H, Urine Leukocyte Esterase NEGATIVE, Urine WBC (Auto) 0, Urine RBC (Auto) 1, Urine Hyaline Casts (Auto) 0, Urine Bacteria (Auto) NEGATIVE, Urine Squamous Epithelial Cells 0, Urine Sperm (Auto) , Coronavirus (COVID-19)(PCR) NEGATIVE, Influenza Type A (RT-PCR) NEGATIVE, Influenza Type B (RT-PCR) NEGATIVE, Respiratory Syncytial Virus (PCR) NEGATIVE 02/10/21 22:47: Ammonia < 10 02/11/21 00:13: Bedside Glucose (Misc Panel) 40L 02/11/21 00:29: Bedside Glucose Confirm (Misc) 116 02/11/21 00:38: Bedside Glucose (Misc Panel) 124H 02/11/21 03:27: Bedside Glucose (Misc Panel) 24*L 02/11/21 03:48: Bedside Glucose (Misc Panel) 100 02/11/21 03:56: Bedside Glucose Confirm (Misc) 60 02/11/21 04:54: Bedside Glucose (Misc Panel) 29*L 02/11/21 05:16: Bedside Glucose (Misc Panel) 185H 02/11/21 05:57: Bedside Glucose (Misc Panel) 126H 02/11/21 07:03: Nucleated Red Blood Cells % (auto) 0.0, Anion Gap 9, Glomerular Filtration Rate 48.3, Calcium Level 8.7L, Magnesium Level 2.2, Prolactin 5.1 02/11/21 09:49: Bedside Glucose (Misc Panel) 74L 02/11/21 11:25: Bedside Glucose (Misc Panel) 95 02/11/21 12:48: Bedside Glucose (Misc Panel) 71L 02/11/21 13:49: Bedside Glucose (Misc Panel) 31*L 02/11/21 14:13: Bedside Glucose (Misc Panel) 124H CBC/BMP Laboratory Tests 02/10/21 17:48 02/10/21 17:54 02/11/21 07:03 REHAN LEVINE MD Feb 11, 2021 15:48
[2021-02-11 20:34] VITALS: BP 108/58
[2021-02-11] MEDS ORDERED: ASPIRIN 81MG ENTERIC TABLET PO SCH (21:00)
[2021-02-11] MEDS ORDERED: SIMVASTATIN 20 MG TAB PO SCH (21:00)
--- NOTE | 2021-02-11 21:36 | IPNPDOC ---
Text Note Date of Service The patient was seen on 02/11/21. NOTE I was informed by the patient's RN Huong that the patient had become O2 depe ndent early in the afternoon and this evening had to be upgraded to venti-mask. She was also less responsive. Her vitals and serum glucose were unrevealing. The patient's daugther in law was at the bedside and added that the patient was refusing O2 earlier on as well. I suggested that she call her so that we can discuss transitioning to WARNING ANALYST vs ordering additional tests. At about 924PM, just before her arrived, the patient had a short run of Vtach and then asystole. I suspect that the primary cause of the encephalopathy and cardiac arrest is hypoglycemia. VS,Fishbone, I+O VS, [place], I+O Laboratory Tests 02/11/21 07:03 Vital Signs Date Time Temp Pulse Resp B/P (MAP) Pulse Ox O2 Delivery O2 Flow Rate FiO2 02/11/21 16:00 Nasal Cannula 2.0 02/11/21 15:00 97.4 72 17 107/58 (74) 92 I&O- Last 24 Hours up to 6 AM 02/11/21 06:00 Intake Total 200 ml Output Total 0 ml Balance 200 ml DEBI COSTELLO MD Feb 11, 2021 21:36
--- NOTE | 2021-02-12 05:48 | ECGEPIP ---
[facility] Test Date: 2021-02-11 Pat Name: CHALO BONNER Department: Room: [place] [address] Gender: Female Vice President Of Development: ESAU : 1935 Requested By: DEBI COSTELLO Order Number: [id number] Reading MD: Colby De Dios Measurements Intervals [place] Rate: 70 P: 70 ME: 184 QRS: -57 QRSD: 150 T: 87 QT: 486 QTc: 524 Interpretive Statements Normal sinus rhythm Right bundle branch block Left anterior fascicular block Bifascicular block Left ventricular hypertrophy with repolarization abnormality No significant change since prior tracing of February 10, 2021 Electronically Signed on 02-12-2021 5:47:55 EDT by Colby De Dios
--- NOTE | 2021-02-12 07:57 | ECHO ---
ECHOCARDIOGRAM DATE OF PROCEDURE: 02/11/2021 Age: 85 Gender: Female Height: 157 cm Weight: 69 kg INDICATION: Cerebrovascular accident MEASUREMENTS: IVS 1.0 cm LV 3.9 cm LVPW 0.8 cm LA 3.1 cm Aorta 2.8 cm Mitral E wave velocity 62 A wave 86 E prime septal 5.9 E prime lateral 7.1 IVC 1.5 FINDINGS: This study is of acceptable technical quality. There is underlying sinus rhythm. Left ventricle is normal size and normal contractility, I estimate LVEF at approximately 65 to 70%. I cannot definitely rule out segmental wall motion abnormalities, but based on available views, it appears unlikely. Right ventricle is also normal size and systolic function. Both atria appear grossly normal. Aortic valve is heavily calcified, it was poorly visualized and I cannot comment much on its structure. There is definite restriction of cusp mobility though. Mitral valve exhibits mild degenerative abnormalities, but mobility of leaflets is preserved. Tricuspid valve appears normal. Pulmonic valve was not well visualized. No pericardial effusion is noted. Inferior vena cava is of normal size. Aortic root and aortic arch appear normal. Abdominal aorta was not well seen. Doppler interrogation of aortic valve reveals mild insufficiency and probably moderate stenosis. Peak gradient was 54. Mean gradient 30 mmHg. Calculated ISATU was 1.0 cm/m2, which likely overestimates severity of the disease. There is mild mitral and mild tricuspid insufficiency. Calculated pulmonary artery pressure is in high 30's, corresponding to mild pulmonary hypertension. Mitral inflow pattern and tissue Doppler imaging of mitral annulus revealed likely grade 1 diastolic dysfunction. Injection of agitated saline was of poor quality and I cannot comment whether there is an intracardiac shunt or not. CONCLUSIONS: 1. Study is of acceptable technical quality, underlying sinus rhythm. 2. Normal LV size with normal LV systolic function, estimated LVEF of approximately 70%. Grade 1 diastolic dysfunction. 3. Prominent aortic sclerosis resulting in mild insufficiency and moderate stenosis (mean gradient 30, calculated ISATU 1.0 cm/m2). 4. Mild mitral and mild tricuspid insufficiency. 5. Likely normal central venous pressure and mild pulmonary hypertension. 6. Poor quality of "bubble study" does not allow assessment of intracardiac shunting. [facility]
--- NOTE | 2021-02-15 15:04 | DS.PDOC ---
Discharge Summary General Date of Admission Feb 10, 2021 at 20:15 Date of Discharge 02/11/21 Discharge Summary PROCEDURES PERFORMED DURING STAY: [None]. DISCHARGE DIAGNOSES: Acute respiratory failure with hypoxia Acute Diastolic CHF Aortic stenosis and aortic regurgitation Severe Recurrent hypoglycemia Acute metabolic encephalopathy on the background of her dementia Diabetes HTN HLD CKD stage 3 Right renal cell cancer s/p right nephrectomy COMPLICATIONS/CHIEF COMPLAINT: Altered Mental Status. HOSPITAL COURSE: This is an 85 y/o female resident of [facility] ,with a pmh of dementia, hld, htn, chf, renal cell carcinoma s/p nephrectomy, ckd3, dm2, hep c who presented to the ED after staff at correction ([facility]) noticed her to have acute ams, weakness and facial droop. She was admitted for acute metabolic encephalopathy on the background of dementia. It was initially felt that she had a stroke however MRA, MRI, CT angio of the head are negative for any acute cerebral infarction or hemorrhage. However she was noted to be hypoglycemic. She continued to be recurrently hypoglycemic inspite of being on 10% dextrose infusion. Patient was put on Q2hour blood sugar monitoring and also started on 50% dextrose amps every [address] chest was done on 02/11/21 morning which showed scattered fibrotic changes without any consolidation, infiltrate or effusion or edema. She became mildly hypoxic in the afternoon so started on oxygen and was moved to PCU. Around 8 pm patient became acutely hypoxic needing 15 liters of oxygen. I suspect patient went is acute CHF/ pulmonary edema from all the dextrose she was needing to maintain her sugars. Situation was discussed with family at bedside by Dr Grady and while they were deciding whether to do further investigations for her acute worsening of respiratory status patient wes t into v tach then asystole seen on the cardiac cath technician. As per her wishes she was DNR/DNI so no resuscitation was attempted. Patient at 9;24 pm on 02/11/21. DISPOSITION: 20 . TIME SPENT ON DISCHARGE: 31 minutes. Vital Signs/I&Os Vital Signs Date Time Temp Pulse Resp B/P (MAP) Pulse Ox O2 Delivery O2 Flow Rate FiO2 02/11/21 21:24 15.0 02/11/21 20:40 90 Venturi Mask 50 02/11/21 20:34 96.6 70 16 108/58 (75) Discharge Medications Scheduled Amlodipine Besylate (Norvasc) 5 Mg Tablet, 5 MG PO DAILY, (Reported) Aspirin (Aspirin EC) 81 Mg Tablet.dr, 81 MG PO QHS, (Reported) Brinzolamide/Brimonidine Tart (Simbrinza 1%-0.2% Eye Drops) 8 Ml Drops.susp, 1 DROP OU QHS, (Reported) Cholecalciferol (Vitamin D3) (Vitamin D3) 1,000 Unit Tablet, 1,000 UNITS PO DAILY, (Reported) Citalopram Hydrobromide (Citalopram HBr) 20 Mg Tablet, 30 MG PO DAILY, (Reported) Famotidine (Famotidine) 20 Mg Tablet, 20 MG PO DAILY, (Reported) Furosemide (Furosemide) 20 Mg Tablet, 20 MG PO DAILY, (Reported) Insulin Glargine,Hum.rec.anlog (Basaglar Kwikpen U-100) 100 Unit/1 Ml I nsuln.pen, 10 UNIT SC DAILY, (Reported) HOLD IF BGL<100 Insulin Glargine,Hum.rec.anlog (Basaglar Kwikpen U-100) 100 Unit/1 Ml Insuln.pen, 15 UNIT SC QPM, (Reported) TAKES AT DINNERTIME, HOLD IF BGL<100 Latanoprost (Xalatan) 0.005% 2.5ML Drops, 1 DROP OU QHS, (Reported) Losartan Potassium (Losartan Potassium) 100 Mg Tablet, 100 MG PO QHS, (Reported) Metformin HCl (Metformin HCl) 500 Mg Tablet, 500 MG PO BID, (Reported) Simvastatin (Simvastatin) 20 Mg Tablet, 20 MG PO QHS, (Reported) Scheduled PRN Bisacodyl (Dulcolax) 10 Mg Supp.rect, 10 MG DE DAILY PRN for CONSTIPATION, (Reported) Magnesium Hydroxide (Milk of Magnesia) 400 Mg/5 Ml Oral.susp, 30 ML PO DAILY PRN for CONSTIPATION, (Reported) Melatonin (Melatonin) 3 Mg Tablet, 3 MG PO QHS PRN for INSOMNIA, (Reported) Propylene Glycol/Peg 400/Pf (Systane 0.3-0.4% Eye Drop) 1 Each Droperette, 1 DROP OU QID PRN for DRY EYES, (Reported) Allergies Coded Allergies: Sulfa (Sulfonamide Antibiotics) (Verified Allergy, Intermediate, hives, 12/14/18) Quinolones (Verified Adverse Reaction, Intermediate, psychosis, 12/14/18) hydromorphone (Verified Adverse Reaction, Intermediate, psychosis, 12/14/18) REHAN LEVINE MD Feb 15, 2021 15:04
== END 2021-02-11 21:24 | disposition expired | DRG 637 ==
LOC: M ED 17:14 → M ED INP 20:15 → ENRESERV 22:42 → M MSPAV 23:45 → M PCU 02-11 15:06
PROVIDERS: ADMIT Internal Medicine; ATTEND Internal Medicine Nephrology
DX: E11.649 Type 2 diabetes mellitus with hypoglycemia without coma (principal); G93.41 Metabolic encephalopathy; J96.01 Acute respiratory failure with hypoxia; I13.0 Hypertensive heart and chronic kidney disease with heart failure and stage 1 through stage 4 chronic kidney disease, or unspecified chronic kidney disease; I50.32 Chronic diastolic (congestive) heart failure; N18.30 Chronic kidney disease, stage 3 unspecified; E11.22 Type 2 diabetes mellitus with diabetic chronic kidney disease; F03.90 Unspecified dementia, unspecified severity, without behavioral disturbance, psychotic disturbance, mood disturbance, and anxiety; I35.0 Nonrheumatic aortic (valve) stenosis; B18.2 Chronic viral hepatitis C; Z79.899 Other long term (current) drug therapy; Z79.82 Long term (current) use of aspirin; Z79.4 Long term (current) use of insulin; Z88.2 Allergy status to sulfonamides; Z88.8 Allergy status to other drugs, medicaments and biological substances; K21.9 Gastro-esophageal reflux disease without esophagitis